=== PATIENT | male | born 1970 | race Caucasian/White ===

== ENCOUNTER 2024-01-05 10:46 | Inpatient (IN) ==
[2024-01-05] MEDS ORDERED: VANCOMYCIN CONSULT ACTIVE PRN (11:38)
--- NOTE | 2024-01-05 11:39 | Emergency Department Note ---
Impression & Plan Laryngitis, Esophagitis, Multiple myeloma, Pharyngitis, Narrowing of airway ED Provider Note NAME: CAT MIX AGE: 53 SEX: M : 1970 ARRIVES VIA: Walk-In INFORMANT: Patient ED PROVIDER(S): Jass Berg MD CHIEF COMPLAINT: Congestion, sore throat, PLAN: Disposition: Admit MEDICAL DECISION MAKING: The patient is a pleasant 53y/o gentleman with a past medical history of multiple myeloma following with [facility], [place], operated by [facility] who presents to the emergency department via walk-in, accompanied by his for concern for worsening congestion and fevers over the past several days. They report that patient had complications from his treatments with fluid retention and so has not had any treatment for his multiple myeloma for the past month. Reports having sore throat and painful swallowing and difficulty clearing congestion in his throat due to the pain when he does. On my evaluation the patient is uncomfortable no distress, afebrile with heart in the 110s and blood pressure 160s/100s and vital signs otherwise stable. He appears clinically dry. There is no stridor but does have upper airway congestion, which is painful for him to mobilize. Patient exhibits substantial posterior pharyngeal injection minimal edema of the visualized posterior pharynx. There is no tongue elevation or trismus. No pain with tracheal manipulation. EKG without overt acute ischemia. CXR negative for acute cardiopulmonary process per my personal preliminary review/interpretation. WBC 12K with neutrophilia but no left shift. H/H 13.8/39.3 without prior for comparison. Platelets 1 18K without prior for comparison. Chemistry without metabolic acidosis. Lactic acid 0.8, within normal limits. Procalcitonin is not elevated. High-sensitivity troponin 8.4, within normal limits. UA without evidence of infection. Respiratory BioFire was negative. Patient was treated with IV fluid hydration, dexamethasone, DuoNeb with improvement in his secretions. He was subsequently given Magic mouthwash and had additional relief of symptoms and able to mobilize secretions. Empiric Zosyn and Vancomycin administered. Given his history and severity of symptoms CT of the neck and chest were obtained. Findings demonstrate edematous glottic folds and epiglottis with adjacent stranding. This results in severe supraglottic and glottic airway narrowing. Angioedema and infectious process are considered. Wall thickening with adjacent stranding of the proximal thoracic esophagus suggestive hidradenitis. Lytic skeletal lesions consistent with the patient's history of multiple myeloma. On reevaluation, the patient continued to exhibit no stridor during his observation. They agree with plan for admission. Vital signs improved. Case was discussed with Dr. Rivera ENT on-call. Appreciate consultation, recommendations, and evaluation at the bedside. Case was discussed with Dr. Lozada [facility] hospitalist, who will evaluate the patient for admission. Further management per admitting team. Triage Nursing notes reviewed and agree them. Prior/external medical records reviewed Vital Signs: reviewed Differential diagnosis: Viral syndrome, otitis, pharyngitis, pneumonia, influenza, meningitis, urinary tract infection, sepsis, bacteremia, as well as other pathologies. ER treatment provided: See below. Diagnostics interpreted by me: ECG: Sinus tachycardia, 108, no ectopy, no overt ST elevation or depression, QTc 455, QRS 102. Cardiac Monitoring: An order for continuous cardiac monitoring was placed and demonstrated Sinus tachycardia, 108, no ectopy. Laboratory studies: See below Imaging studies: See below Consultation(s): Dr. Rivera ENT on-call Dr. Lozada [facility] hospitalist HPI: The patient is a pleasant 53y/o gentleman with a past medical history of multiple myeloma following with [facility], [place], operated by [facility] who presents to the emergency department via walk-in, accompanied by his for concern for worsening congestion and fevers over the past several days. They report that patient had complications from his treatments with fluid retention and so has not had any treatment for his multiple myeloma for the past month. Reports having sore throat and painful swallowing and difficulty clearing congestion in his throat due to the pain when he does. ROS: See above HPI for pertinent positives & negatives. A total of 10 systems reviewed and were otherwise negative. VITALS:See Below PHYSICAL EXAMINATION: GENERAL: Awake, alert, uncomfortable-appearing, in no distress HENT: Normocephalic, atraumatic. Substantial posterior pharyngeal injection minimal edema of the visualized posterior pharynx. There is no tongue elevation or trismus. EYES: Normal conjunctiva. Sclera non-icteric. NECK: Supple. No nuchal rigidity. FROM. No JVD. No stridor but does have upper airway congestion, which is painful for him to mobilize. No pain with tracheal manipulation. RESPIRATORY: Clear to auscultation. CARDIAC: Tachycardic rate, normal rhythm. Extremities warm and well perfused. Pulses equal. ABDOMEN: Soft, non-distended. No tenderness to palpation. No rebound or guarding. No masses. MUSCULOSKELETAL: Chest examination reveals no tenderness. The back is symmetrical on inspection without obvious abnormality. There is no CVA tenderness to palpation. No joint edema. LOWER EXTREMITIES: Calves are equal size bilaterally and non-tender. No edema. No discoloration. NEURO: Normal sensorium. No sensory or motor deficits noted. SKIN: No rash or jaundice noted. Jass Berg MD Past Med/Surg History Problem List (Updated 01/05/24 @ 18:13 by Jass Berg MD) Narrowing of airway (Acute) Pharyngitis (Acute) Laryngitis (Acute) Epiglottitis Hypophosphatemia Sepsis Hypertension Multiple myeloma (Acute) Esophagitis (Acute) Social History Smoking Status: Never smoker Preferred Language: Bengali Feels Safe at Home: Yes Allergies Allergies Allergy/AdvReac Type Severity Reaction Status Date / Time No Known Allergies Allergy Unverified 01/05/24 10:58 Home Meds Home Medications Medication Instructions Recorded Confirmed aspirin 81 mg tablet 81 mg PO DAILY 01/05/24 01/05/24 bupropion HCl 150 mg 24 hr tablet, 150 mg PO QAM 01/05/24 01/05/24 extended release (Wellbutrin XL) cholecalciferol (vitamin D3) 10 10 mcg PO DAILY 01/05/24 01/05/24 mcg (400 unit) capsule cyanocobalamin (vitamin B-12) 1,000 mcg MONTHLY 01/05/24 01/05/24 1,000 mcg/mL injection syringe dexamethasone 4 mg tablet 4 mg PO DAILY 01/05/24 01/05/24 escitalopram oxalate 20 mg tablet 20 mg PO DAILY 01/05/24 01/05/24 furosemide 20 mg tablet 20 mg PO DAILY 01/05/24 01/05/24 gabapentin 300 mg tablet 300 mg PO HS 01/05/24 01/05/24 hyoscyamine sulfate 0.125 mg 0.125 mg PO TID PRN Abdominal 01/05/24 01/05/24 disintegrating tablet (Anaspaz) Discomfort levothyroxine 88 mcg tablet 88 mcg PO DAILY 01/05/24 01/05/24 loratadine 10 mg tablet 10 mg PO DAILY PRN part of chemo 01/05/24 01/05/24 treatment metoprolol succinate 50 mg 25 mg PO DAILY 01/05/24 01/05/24 tablet,extended release 24 hr montelukast 10 mg tablet 10 mg PO DAILY 01/05/24 01/05/24 oxycodone 5 mg tablet 5 mg PO Q6H PRN Pain 01/05/24 01/05/24 rosuvastatin 10 mg tablet 10 mg PO DAILY 01/05/24 01/05/24 zolpidem 5 mg tablet 5 mg PO HS PRN Sleep 01/05/24 01/05/24 Results & Data (ED) Vital Signs Vital Signs - 24 hr 01/05/24 10:58 01/05/24 11:00 01/05/24 11:16 Temperature 37.4 C Temperature Source Oral Pulse Rate 110 H 109 H Pulse Rate [Apical] 115 H Pulse Rhythm Regular Pulse Strength Normal Respiratory Rate 24 24 Respiratory Effort / Characteristics Non-Labored Spontaneous Spontaneous Short of Breath Respiratory Depth Normal Shallow Respiratory Pattern Regular Regular Blood Pressure 160/106 H Blood Pressure [Right Arm] 161/105 H Blood Pressure Mean 124 Blood Pressure Mean [Right Arm] 123 Blood Pressure Position Sitting Pulse Oximetry 96 96 Oxygen Delivery Method Room Air Room Air Sepsis Recent Fever Within 48 Hours Yes Sepsis New/Unexplained Change in Mental Status N/A Sepsis Action Taken by Nursing No Action Required 01/05/24 11:18 01/05/24 12:00 01/05/24 13:00 Temperature Temperature Source Pulse Rate Pulse Rate [Apical] 115 H 102 H Pulse Rhythm Pulse Strength Respiratory Rate 24 22 Respiratory Effort / Characteristics Spontaneous Spontaneous Respiratory Depth Shallow Shallow Respiratory Pattern Regular Regular Blood Pressure Blood Pressure [Right Arm] 162/91 H 145/85 H Blood Pressure Mean Blood Pressure Mean [Right Arm] 114 105 Blood Pressure Position Pulse Oximetry 96 95 95 Oxygen Delivery Method Room Air Room Air Room Air Sepsis Recent Fever Within 48 Hours Sepsis New/Unexplained Change in Mental Status Sepsis Action Taken by Nursing 01/05/24 14:00 01/05/24 15:00 01/05/24 17:00 Temperature Temperature Source Pulse Rate Pulse Rate [Apical] 89 86 83 Pulse Rhythm Pulse Strength Respiratory Rate 20 18 17 Respiratory Effort / Characteristics Non-Labored Spontaneous Spontaneous Respiratory Depth Normal Shallow Respiratory Pattern Regular Regular Blood Pressure Blood Pressure [Right Arm] 133/88 130/84 127/74 Blood Pressure Mean Blood Pressure Mean [Right Arm] 103 99 91 Blood Pressure Position Pulse Oximetry 95 95 96 Oxygen Delivery Method Room Air Room Air Room Air Sepsis Recent Fever Within 48 Hours Sepsis New/Unexplained Change in Mental Status Sepsis Action Taken by Nursing Laboratory Data Attestation: I reviewed the patient's lab results. 01/05/24 11:34 01/05/24 11:34 Lab Results 01/05/24 01/05/24 01/05/24 Range/Units 11:27 11:34 15:27 WBC 12.14 H (4.8-10.8) K/ul RBC 4.40 L (4.70-6.10) M/uL Hgb 13.8 L (14.0-18.0) g/dl Hct 39.3 L (42.0-52.0) % MCV 89.3 (80.0-100.0) fL MCH 31.4 (25.0-34.0) pg MCHC 35.1 (32.0-36.0) g/dL RDW Std Deviation 43.2 (36.4-46.3) fL RDW Coeff of Lisseth 13.2 (11.5-14.5) % Plt Count 118 L (130-400) K/uL MPV 9.9 (9.4-12.4) fL Immature Gran % (Auto) 0.4 % Neut % (Auto) 90.2 % Lymph % (Auto) 1.2 % [place] % (Auto) 8.0 % Eos % (Auto) 0.0 % Baso % (Auto) 0.2 % Neut # (Auto) 10.96 H (1.40-6.50) K/uL Lymph # (Auto) 0.14 L (1.20-3.40) K/uL [place] # (Auto) 0.97 H (0.11-0.59) K/uL Eos # (Auto) 0.00 (0.00-0.50) K/uL Baso # (Auto) 0.02 (0.00-0.20) K/uL Immature Gran # (Auto) 0.05 (0.01-0.20) K/uL Toxic Vacuolation 1+ Dohle Bodies 1+ Polychromasia 1+ Sodium 137 (136-145) mmol/L Potassium 3.5 (3.5-5.1) mmol/L Chloride 104 (98-107) mmol/L Carbon Dioxide 25 (21-32) mmol/L Anion Gap 8 (3-11) BUN 16 (6-23) mg/dl Creatinine 0.90 (0.6-1.4) mg/dl Est Cr Clr Drug Dosing 127.9 ml/min eGFR 100.86 BUN/Creatinine Ratio 17.8 (10-20) Glucose 124 H (70-99(Fasting)) mg/dl Lactate 0.8 (0.4-2.0) mmol/L Calcium 9.4 (8.6-10.3) mg/dl Phosphorus 1.8 L (2.5-4.9) mg/dl Magnesium 1.7 (1.7-2.4) mg/dl Total Bilirubin 1.6 H (0.2-1.0) mg/dl Direct Bilirubin 0.2 (0-0.2) mg/dl AST 18 (13-39) U/L ALT 14 (7-52) U/L Alkaline Phosphatase 46 (34-104) U/L Troponin I High Sens 8.4 (0-20) pg/ml Total Protein 7.2 (6.0-8.3) gm/dl Albumin 4.7 (3.4-5.0) gm/dl Procalcitonin 0.42 (0-0.5) ng/ml Urine Color Yellow Urine Appearance Clear (Clear) Urine pH 5.5 (4.5-7.5) Ur Specific [place] 1.015 (1.000-1.030) Urine Protein Trace H (Negative) Urine Glucose (UA) Negative (Negative) Urine Ketones Negative (Negative) Urine Blood Negative (Negative) Urine Nitrite Negative (Negative) Urine Bilirubin Negative (Negative) Urine Urobilinogen Negative (Negative) Ur Leukocyte Esterase Negative (Negative) Urine WBC (Auto) 0-5 (0-5) /hpf Urine RBC (Auto) 0-2 (0-2) /hpf U Hyaline Cast (Auto) 0-2 (0-2) /lpf U Epithel Cells (Auto) 0-2 (0-2) /hpf Urine Bacteria (Auto) None Seen (None Seen) Adenovirus (PCR) Not Detected (NotDetected) B. pertussis DNA (PCR) Not Detected (NotDetected) B.parapertussis DNA PCR Not Detected (NotDetected) C. pneumoniae DNA (PCR) Not Detected (NotDetected) Coronavirus OC43 (PCR) Not Detected (NotDetected) Coronavirus HKU1 (PCR) Not Detected (NotDetected) Coronavirus 229E (PCR) Not Detected (NotDetected) SARS-CoV-2 (PCR) Not Detected (NotDetected) Coronavirus NL63 (PCR) Not Detected (NotDetected) Human Metapneumovir PCR Not Detected (NotDetected) Influenza Type A (PCR) Not Detected (NotDetected) Influenza Type B (PCR) Not Detected (NotDetected) M. pneumoniae (PCR) Not Detected (NotDetected) Parainfluenza 1 (PCR) Not Detected (NotDetected) Parainfluenza 2 (PCR) Not Detected (NotDetected) Parainfluenza 3 (PCR) Not Detected (NotDetected) Parainfluenza 4 (PCR) Not Detected (NotDetected) RSV (PCR) Not Detected (NotDetected) Entero/Rhino (PCR) Not Detected (NotDetected) Administered Medications Discontinued Medications Al Hydrox/Mg Hydrox/Simethicone (Aluminum/Magnesium Susp 30 Ml Udc) 15 ml PO NOW STA Stop: 01/05/24 13:18 Last Admin: 01/05/24 13:42 Dose: Not Given Documented By: BESSY Albuterol (Albut/Ipratrop 3mg/0.5mg Neb 3 Ml Vial) 3 ml NEB NOW STA; Protocol Stop: 01/05/24 11:37 Last Admin: 01/05/24 11:42 Dose: 3 ml Documented By: BESSY Dexamethasone Sodium Phosphate (DexamethasonePf 10 Mg/Ml Vial) 10 mg IV NOW ONE Stop: 01/05/24 11:37 Last Admin: 01/05/24 11:43 Dose: 10 mg Documented By: BESSY Sodium Chloride (Nss) 1,000 mls @ 999 mls/hr IV .Q1H1M ARIE Stop: 01/05/24 12:30 Last Infusion: 01/05/24 12:45 Dose: Infused Documented By: Admin: 01/05/24 11:44 Dose: 999 mls/hr Documented By: BESSY Piperacillin Sod/Tazobactam Sod (Zosyn) 4.5 gm in 100 mls @ 200 mls/hr IV NOW ONE; Protocol Stop: 01/05/24 12:07 Last Infusion: 01/05/24 12:40 Dose: Infused Documented By: Admin: 01/05/24 12:10 Dose: 200 mls/hr Documented By: BESSY Vancomycin HCl 2,750 mg/ (Sodium Chloride) 555 mls @ 200 mls/hr IV NOW ONE Stop: 01/05/24 14:24 Last Infusion: 01/05/24 15:47 Dose: Infused Documented By: Admin: 01/05/24 13:00 Dose: 200 mls/hr Documented By: BESSY Acetaminophen (Ofirmev) 1,000 mg in 100 mls @ 400 mls/hr IV NOW STA Stop: 01/05/24 12:23 Last Infusion: 01/05/24 12:47 Dose: Infused Documented By: Admin: 01/05/24 12:32 Dose: 400 mls/hr Documented By: BESSY Ioversol (Optiray 320 125ml) 120 ml IV ONCE ONE Stop: 01/05/24 15:37 Last Admin: 01/05/24 15:39 Dose: 120 ml Documented By: DELILAH Ketorolac Tromethamine (Ketorolac Tromethamine 15 Mg/Ml Vial) 15 mg IV NOW STA Stop: 01/05/24 13:19 Last Admin: 01/05/24 13:31 Dose: 15 mg Documented By: BESSY Multi-Ingredient Mouthwash/Gargle (First - Mouthwash Blm 5 Ml Udp) 5 ml PO ONE ONE Stop: 01/05/24 13:24 Last Admin: 01/05/24 13:34 Dose: 5 ml Documented By: BESSY Oxymetazoline HCl (Oxymetazoline 0.05% 30 Ml Btl) 1 sprays NA NOW ONE Stop: 01/05/24 16:45 Last Admin: 01/05/24 17:49 Dose: 1 sprays Documented By: TOYA Imaging Data Radiologist's Impression: Chest X-Ray 01/05/24 11:18 XR chest 1V portable CLINICAL HISTORY: Sepsis. COMPARISON STUDY: No previous studies for comparison. FINDINGS: A right internal jugular [id number] is in place. There is no pneumothorax or pleural effusion. There is no consolidation or evidence for pulmonary edema. There are old right-sided rib fractures. The heart is mildly enlarged. IMPRESSION: No acute cardiopulmonary findings. Mild cardiomegaly. ACT 112: Negative or not required by law. Electronically signed by: Kyle Gutierrez M.D. 01/05/2024 1:23 PM Chest CTA 01/05/24 15:11 CT angio chest PE protocol CT DOSE: 1398.39 mGy.cm HISTORY: 53 years-old Male with sob, fever, multiple myeloma, r/o PE. Acute shortness breath in a patient with history of multiple myeloma TECHNIQUE: Multiple CTA images of the chest were obtained after the intravenous administration of Optiray. Coronal and sagittal MIPS were obtained from the axial data set and were submitted for review. All measurements were obtained according to NASCET criteria. A dose lowering technique was utilized adhering to the principles of ALARA. COMPARISON: CT soft tissue neck of same day FINDINGS: CTA: Heart is upper limits of normal in size. No pericardial effusion. Minimal coronary artery calcifications. Right IJ Oyxafd-y-Ujpv catheter. Unremarkable pulmonary artery. CT CHEST: No dominant thyroid nodule or pathologically enlarged lymph nodes. No pneumothorax, pleural effusion, airspace consolidation or overt pulmonary edema. Mild dependent subsegmental bibasilar atelectasis. Central airways are patent. No acute upper abdominal abnormality identified. Hepatic steatosis. Osteolytic skeletal lesions are noted with pathologic cortical destructions involving several right ribs, notably the lateral and third and sixth and posterior seventh ribs. No acute pathologic compression deformity of the spine. No high- grade central canal stenosis identified. Nonspecific circumferential wall thickening of the upper to mid thoracic esophagus. IMPRESSION: 1. No pulmonary emboli identified. 2. Nonspecific wall thickening of the upper to mid thoracic esophagus could be correlated with endoscopy. 3. Expansile destructive osteolytic skeletal lesions compatible with the patient's known clinical history of multiple myeloma. ACT 112: Negative or not required by law. The above report was generated using voice recognition software. It may contain grammatical, syntax or spelling errors. Electronically signed by: David Humphrey M.D. 01/05/2024 3:57 PM Soft Tissue Neck CT 01/05/24 15:11 CT OF THE NECK WITH IV CONTRAST CLINICAL HISTORY: multiple myeloma, pharyngitis COMPARISON STUDY: No previous studies for comparison. TECHNIQUE: Following IV administration of Optiray, helical axial images of the neck were obtained. Sagittal and coronal reconstructions were viewed. Automated exposure control was utilized for the study. A dose lowering technique was utilized adhering to the principles of ALARA. FINDINGS: Visualized portions of the brain parenchyma are unremarkable. A moderate right mastoid effusion is present. There is no prevertebral edema. Of note, the epiglottis and aryepiglottic folds are edematous. There is adjacent stranding. The findings result in severe supraglottic and glottic airway narrowing. No associated fluid collection is present. There is no cervical lymphadenopathy. The parotid and submandibular glands are normal. Major vasculature of the neck is patent. A right internal jugular Sgfhri-k-Daoq is in place. Multiple lytic skeletal lesions are present. These include an expansile lateral right third rib lesion which is partially imaged. There is moderate circumferential wall thickening with mild stranding of the proximal thoracic esophagus. IMPRESSION: 1. Edematous aryepiglottic folds and epiglottis with adjacent stranding. The findings result in severe supraglottic and glottic airway narrowing. The findings are nonspecific and could reflect angioedema or an infectious process. Close clinical follow-up is recommended. A neoplastic etiology is considered less likely however imaging follow-up to ensure resolution is recommended. Findings discussed with Dr. Berg at time of dictation. 2. Wall thickening with adjacent stranding of the proximal thoracic esophagus. This may reflect esophagitis. 3. Lytic skeletal lesions consistent with the history of multiple myeloma. ACT 112: Negative or not required by law. Electronically signed by: Kyle Gutierrez M.D. 01/05/2024 4:15 PM Discharge Plan Visit Data Chief Complaint: Illness Stated Complaint: POSSIBLE PNEUMONIA, FEVER, CONGESTION, CAN'T TALK ED Provider: Jass Berg Discharge Problem: Laryngitis, Esophagitis, Multiple myeloma, Pharyngitis, Narrowing of airway Forms Stand Alone Forms: My [facility] [email or web address] Prescriptions Prescriptions: No Action rosuvastatin 10 mg Tablet 10 mg PO DAILY metoprolol succinate 50 mg Tablet Extended Release 24 Hr 25 mg PO DAILY levothyroxine 88 mcg Tablet 88 mcg PO DAILY Rx Instructions: on an empty stomach hyoscyamine sulfate [Anaspaz] 0.125 mg Tablet,Disintegrating 0.125 mg PO TID PRN (Reason: Abdominal Discomfort) dexamethasone 4 mg Tablet 4 mg PO DAILY montelukast 10 mg Tablet 10 mg PO DAILY Patient Comments: part of chemo treatment aspirin 81 mg Tablet 81 mg PO DAILY zolpidem 5 mg Tablet 5 mg PO HS PRN (Reason: Sleep) furosemide 20 mg Tablet 20 mg PO DAILY loratadine 10 mg Tablet 10 mg PO DAILY PRN (Reason: part of chemo treatment) Patient Comments: part of chemo treatment oxycodone 5 mg Tablet 5 mg PO Q6H PRN (Reason: Pain) cholecalciferol (vitamin D3) 10 mcg (400 unit) Capsule 10 mcg PO DAILY cyanocobalamin (vitamin B-12) 1,000 mcg/mL Syringe 1,000 mcg MONTHLY escitalopram oxalate 20 mg Tablet 20 mg PO DAILY bupropion HCl [Wellbutrin XL] 150 mg Tablet Extended Release 24 Hr 150 mg PO QAM gabapentin 300 mg Tablet 300 mg PO HS Referrals Referrals: PCP,NO [Physician] - Discharge Problem: Multiple myeloma Qualifiers: Multiple myeloma remission status: unspecified Qualified Code(s): C90.00 - Multiple myeloma not having achieved remission Pharyngitis Qualifiers: Pharyngitis/tonsillitis etiology: unspecified etiology Qualified Code(s): J02.9 - Acute pharyngitis, unspecified
[2024-01-05] MEDS: ALBUT/IPRATROP 3MG/0.5MG NEB 3 ML VIAL NEB STA (11:42)
[2024-01-05] MEDS: dexAMETHasone**PF** 10 MG/ML VIAL IV ONE (11:43)
[2024-01-05] MEDS: SODIUM CHLORIDE 0.9% 1,000 ML IV SCH (11:44)
[2024-01-05 12:10] LABS: Hematocrit (blood only) 39.3 % (42.0-52.0); Hemoglobin 13.8 g/dl (14.0-18.0); Mean Corpuscular Hemoglobin 31.4 pg (25.0-34.0); Mean Corpuscular Hgb Conc 35.1 g/dL (32.0-36.0); Mean Corpuscular Volume 89.3 fL (80.0-100.0); Mean Platelet Volume 9.9 fL (9.4-12.4); Platelet Count 118 K/uL (130-400); RDW Coefficient of Variation 13.2 % (11.5-14.5); RDW Standard Deviation 43.2 fL (36.4-46.3); White Blood Count 12.14 K/ul (4.8-10.8)
[2024-01-05] MEDS: PIPERACILLIN/TAZOBACTAM 4.5 GM/100 ML BAG IV ONE (12:10)
[2024-01-05 12:28] LABS: Albumin Level 4.7 gm/dl (3.4-5.0); BUN Creatinine Ratio 17.8 (10-20); Bilirubin Direct 0.2 mg/dl (0-0.2); Bilirubin,Total 1.6 mg/dl (0.2-1.0); Calcium 9.4 mg/dl (8.6-10.3); Creatinine Clr Calc Pharmacy 127.9 ml/min; Magnesium 1.7 mg/dl (1.7-2.4); Phosphorus 1.8 mg/dl (2.5-4.9); Potassium 3.5 mmol/L (3.5-5.1); Total Protein 7.2 gm/dl (6.0-8.3)
[2024-01-05 12:29] LABS: Basophils # (auto) 0.02 K/uL (0.00-0.20); Basophils % (auto) 0.2 %; Dohle Bodies 1+; Immature Granulocytes # (auto) 0.05 K/uL (0.01-0.20); Immature Granulocytes % (auto) 0.4 %; Lymphocytes # (auto) 0.14 K/uL (1.20-3.40); Lymphocytes % (auto) 1.2 %; Monocytes # (auto) 0.97 K/uL (0.11-0.59); Neutrophils # (auto) 10.96 K/uL (1.40-6.50); Neutrophils % (auto) 90.2 %; Polychromasia 1+; Toxic Vacuolation 1+
[2024-01-05] MEDS: ACETAMINOPHEN 1,000 MG/100 ML VIAL IV STA (12:32)
[2024-01-05 12:34] LABS: Troponin I High Sensitivity 8.4 pg/ml (0-20)
[2024-01-05] MEDS: VANCOMYCIN HCL 2,750 MG in SODIUM CHLORIDE 0.9% 500 ML IV ONE (13:00)
[2024-01-05 13:09] LABS: Adenovirus PCR Not Detected (NotDetected); Bordetella parapertussis PCR Not Detected (NotDetected); Bordetella pertussis PCR Not Detected (NotDetected); Chlamydia pneumoniae PCR Not Detected (NotDetected); Coronavirus 229E PCR Not Detected (NotDetected); Coronavirus CoV-2 (COVID19)PCR Not Detected (NotDetected); Coronavirus HKU1 PCR Not Detected (NotDetected); Coronavirus NL63 PCR Not Detected (NotDetected); Coronavirus OC43PCR Not Detected (NotDetected); Human Metapneumovirus PCR Not Detected (NotDetected); Influenza A PCR Not Detected (NotDetected); Influenza B PCR Not Detected (NotDetected); Mycoplasma pneumoniae PCR Not Detected (NotDetected); Parainfluenza Virus 1 PCR Not Detected (NotDetected); Parainfluenza Virus 2 PCR Not Detected (NotDetected); Parainfluenza Virus 3 PCR Not Detected (NotDetected); Parainfluenza Virus 4 PCR Not Detected (NotDetected); Respiratory Syncytial VirusPCR Not Detected (NotDetected); Rhinovirus/Enterovirus PCR Not Detected (NotDetected)
--- NOTE | 2024-01-05 13:24 | XRay Report ---
XR chest 1V portable CLINICAL HISTORY: Sepsis. COMPARISON STUDY: No previous studies for comparison. FINDINGS: A right internal jugular [id number]-b-Xmrq is in place. There is no pneumothorax or pleural eff usion. There is no consolidation or evidence for pulmonary edema. There are old right-sided rib fract ures. The heart is mildly enlarged. IMPRESSION: No acute cardiopulmonary findings. Mild cardiomegaly. ACT 112: Negative or not required by law. Electronically signed by: Kyle Gutierrez M.D. 01/05/2024 1:23 PM
[2024-01-05] MEDS: KETOROLAC TROMETHAMINE 15 MG/ML VIAL IV STA (13:31)
[2024-01-05] MEDS: FIRST - Mouthwash BLM 5 ML UDP PO ONE (13:34)
[2024-01-05] MEDS: ALUMINUM/MAGNESIUM SUSP 30 ML UDC PO STA (13:42)
[2024-01-05] MEDS: OPTIRAY 320 125ml IV ONE (15:39)
[2024-01-05 15:47] LABS: Appearance Urine Clear (Clear); Bacteria Urine Automated None Seen (None Seen); Bilirubin Urine Negative (Negative); Blood Urine Negative (Negative); Cast Urine Automated 0-2 /lpf (0-2); Color Urine Yellow; Epithelial Cell Urine Auto 0-2 /hpf (0-2); Glucose Urine UA Negative (Negative); Ketones Urine Negative (Negative); Leukocyte Esterase Urine Negative (Negative); Nitrite Urine Negative (Negative); Protein Urine Trace (Negative); RBC Urine Automated 0-2 /hpf (0-2); Specific Gravity Urine 1.015 (1.000-1.030); Urobilinogen Urine Negative (Negative); WBC Urine Automated 0-5 /hpf (0-5); pH Urine 5.5 (4.5-7.5)
--- NOTE | 2024-01-05 15:59 | CT Scan Report ---
CT angio chest PE protocol CT DOSE: 1398.39 mGy.cm HISTORY: 53 years-old Male with sob, fever, multiple myeloma, r/o PE. Acute shortness breath in a p atient with history of multiple myeloma TECHNIQUE: Multiple CTA images of the chest were obtained after the intravenous administration of Opt iray. Coronal and sagittal MIPS were obtained from the axial data set and were submitted for review. All measurements were obtained according to NASCET criteria. A dose lowering technique was utilized adhering to the principles of ALARA. COMPARISON: CT soft tissue neck of same day FINDINGS: CTA: Heart is upper limits of normal in size. No pericardial effusion. Minimal coronary artery calcificati ons. Right IJ Wmarnc-j-Ghvf catheter. Unremarkable pulmonary artery. CT CHEST: No dominant thyroid nodule or pathologically enlarged lymph nodes. No pneumothorax, pleural effusion, airspace consolidation or overt pulmonary edema. Mild dependent subsegmental bibasilar atelectasis. Central airways are patent. No acute upper abdominal abnormality identified. Hepatic steatosis. Osteolytic skeletal lesions are n oted with pathologic cortical destructions involving several right ribs, notably the lateral and thir d and sixth and posterior seventh ribs. No acute pathologic compression deformity of the spine. No hi gh-grade central canal stenosis identified. Nonspecific circumferential wall thickening of the upper to mid thoracic esophagus. IMPRESSION: 1. No pulmonary emboli identified. 2. Nonspecific wall thickening of the upper to mid thoracic esophagus could be correlated with endosc opy. 3. Expansile destructive osteolytic skeletal lesions compatible with the patient's known clinical his tory of multiple myeloma. ACT 112: Negative or not required by law. The above report was generated using voice recognition software. It may contain grammatical, syntax o r spelling errors. Electronically signed by: David Humphrey M.D. 01/05/2024 3:57 PM
--- NOTE | 2024-01-05 16:17 | CT Scan Report ---
CT OF THE NECK WITH IV CONTRAST CLINICAL HISTORY: multiple myeloma, pharyngitis COMPARISON STUDY: No previous studies for comparison. TECHNIQUE: Following IV administration of Optiray, helical axial images of the neck were obtained. Sagittal and coronal reconstructions were viewed. Automated exposure control was utilized for the st udy. A dose lowering technique was utilized adhering to the principles of ALARA. FINDINGS: Visualized portions of the brain parenchyma are unremarkable. A moderate right mastoid eff usion is present. There is no prevertebral edema. Of note, the epiglottis and aryepiglottic folds are edematous. There is adjacent stranding. The findings result in severe supraglottic and glottic airwa y narrowing. No associated fluid collection is present. There is no cervical lymphadenopathy. The par otid and submandibular glands are normal. Major vasculature of the neck is patent. A right internal j ugular [id number] is in place. Multiple lytic skeletal lesions are present. These include an expan sile lateral right third rib lesion which is partially imaged. There is moderate circumferential wall thickening with mild stranding of the proximal thoracic esophagus. IMPRESSION: 1. Edematous aryepiglottic folds and epiglottis with adjacent stranding. The findings result in sever e supraglottic and glottic airway narrowing. The findings are nonspecific and could reflect angioedem a or an infectious process. Close clinical follow-up is recommended. A neoplastic etiology is conside red less likely however imaging follow-up to ensure resolution is recommended. Findings discussed wit jonathan Berg at time of dictation. 2. Wall thickening with adjacent stranding of the proximal thoracic esophagus. This may reflect esoph agitis. 3. Lytic skeletal lesions consistent with the history of multiple myeloma. ACT 112: Negative or not required by law. Electronically signed by: Kyle Gutierrez M.D. 01/05/2024 4:15 PM
--- NOTE | 2024-01-05 16:42 | History & Physical Report ---
Date of Service January 05, 2024 Assessment & Plan (1) Epiglottitis: Plan: patient presents with pharyngitis, mild URI symptoms, leukocytosis Severe airway narrowing Soft tissue neck CT showing: - severe supraglottic and glottic airway narrowing, nonspecific and could reflect angioedema versus infectious process versus neoplastic etiology imaging follow-up recommended - wall thickening and stranding of thoracic esophagus reflects esophagitis ED course: Decadron, Duoneb, Zosyn, Vanc, Cetacine, Tylenol, Maalox, Toradol, Afrin, Magic mouthwash, NSS bolus - ENT consulted -> taken emergently to OR for tracheostomy with biopsies to be taken - will switch antibiotic coverage to Unasyn as per ENT recommendations - continue dexamethasone 6mg IV daily - CMV titer ordered - if clinically worsening can consider addition of valacyclovir given immunocompromised - admit to ICU post-operatively (2) Multiple myeloma: Plan: currently undergoing treatment with [facility]; no treatment with chemo for the past month because of complications with fluid retention - osteolytic skeletal lesions seen chest CTA and soft tissue neck CT - on dexamethasone, montelukast, loratadine at home - holding all PO medications at this time (3) Hypertension: Plan: stable - hold home BP medications at this time given no PO intake - can add IV control if needed in future (4) Hypophosphatemia: Plan: 1.8 on admission along with hypomagnesemia (3.5) - will give IV K-phos 6 mmol on admission - trend Phos and BMP with AM labs Plan Chronic stable diagnoses: HLD - hold ASA and statin Hypothyroidism - hold levothyroxine A/D - hold Wellbutrin, escitalopram, zolpidem *all PO medications held given esophagitis - can consider IV medications if needed overnight VTE ppx: SCDs; defer pharmacologic management at this time Diet: NPO Dispo: ICU given airway compromise Admission and Anticipated Discharge Date Admission Date: 01/05/24 History of Present Illness Chief Complaint: illness Primary Care Provider: Valeria Zen Patient is a 53-year-old male with past medical history of multiple myeloma currently undergoing treatment, hyperlipidemia, anxiety/depression, hypertension, hypothyroidism. Presents today due to URI symptoms, sore throat congestion, difficulty breathing. He went to his family doctor today and they sent him to the ER. On exam the ENT was present, discussing that patient needs go for trach immediately. Patient was feeling anxious, questions answered. Patient's updated at bedside. She stated he has not been having treatment for multiple myeloma for the past month due to fluid overload, started on Lasix. No other medication changes. Allergies Allergy/AdvReac Type Severity Reaction Status Date / Time No Known Allergies Allergy Unverified 01/05/24 10:58 Home Medications Medication Instructions Recorded Confirmed Type aspirin 81 mg tablet 81 mg PO DAILY 01/05/24 01/05/24 History bupropion HCl 150 mg 24 hr tablet, 150 mg PO QAM 01/05/24 01/05/24 History extended release (Wellbutrin XL) cholecalciferol (vitamin D3) 10 10 mcg PO DAILY 01/05/24 01/05/24 History mcg (400 unit) capsule cyanocobalamin (vitamin B-12) 1,000 mcg MONTHLY 01/05/24 01/05/24 History 1,000 mcg/mL injection syringe dexamethasone 4 mg tablet 4 mg PO DAILY 01/05/24 01/05/24 History escitalopram oxalate 20 mg tablet 20 mg PO DAILY 01/05/24 01/05/24 History furosemide 20 mg tablet 20 mg PO DAILY 01/05/24 01/05/24 History gabapentin 300 mg tablet 300 mg PO HS 01/05/24 01/05/24 History hyoscyamine sulfate 0.125 mg 0.125 mg PO TID PRN Abdominal 01/05/24 01/05/24 History disintegrating tablet (Anaspaz) Discomfort levothyroxine 88 mcg tablet 88 mcg PO DAILY 01/05/24 01/05/24 History loratadine 10 mg tablet 10 mg PO DAILY PRN part of chemo 01/05/24 01/05/24 History treatment metoprolol succinate 50 mg 25 mg PO DAILY 01/05/24 01/05/24 History tablet,extended release 24 hr montelukast 10 mg tablet 10 mg PO DAILY 01/05/24 01/05/24 History oxycodone 5 mg tablet 5 mg PO Q6H PRN Pain 01/05/24 01/05/24 History rosuvastatin 10 mg tablet 10 mg PO DAILY 01/05/24 01/05/24 History zolpidem 5 mg tablet 5 mg PO HS PRN Sleep 01/05/24 01/05/24 History Past Med/Surg History Problem List Narrowing of airway (Acute) Pharyngitis (Acute) Laryngitis (Acute) Epiglottitis Hypophosphatemia Sepsis Hypertension Multiple myeloma (Acute) Esophagitis (Acute) Social History Smoking Status: Never smoker Preferred Language: [place] Feels Safe at Home: Yes Review of Systems Review of Systems: see HPI Physical Exam Physical Exam: The patient is awake, in respiratory distress, being taken for emergent trach. HEENT- EOMI, mucous membranes dry. Hearing grossly intact. Heart-normal S1 and S2. No murmurs, rubs or gallops. Lungs-decreased bilaterally, no respiratory distress, no accessory muscle use. Abdomen-normal bowel sounds and soft. No ascites noted. Non-tender. Extremities- no clubbing, cyanosis, or edema. Rheumatologic-normal range of motion. Psychiatric- anxious affect. Results & Data Results & Data Vital Signs (Past 12 Hours) Vital Signs Temp Pulse Pulse Resp BP BP Pulse Ox 01/05/24 15:00 86 18 130/84 95 01/05/24 14:00 89 20 133/88 95 01/05/24 13:00 102 H 22 145/85 H 95 01/05/24 12:00 115 H 24 162/91 H 95 01/05/24 11:18 96 01/05/24 11:16 109 H 01/05/24 11:00 115 H 24 161/105 H 96 01/05/24 10:58 37.4 C 110 H 24 160/106 H 96 O2 Del Method 01/05/24 15:00 Room Air 01/05/24 14:00 Room Air 01/05/24 13:00 Room Air 01/05/24 12:00 Room Air 01/05/24 11:18 Room Air 01/05/24 11:16 01/05/24 11:00 Room Air 01/05/24 10:58 Room Air Code Status & VTE Plan VTE Prophylaxis Plan VTE Prophylaxis will be ordered: Yes Supervising Physician Co-Signing Physician Notes Patient seen and examined, chart reviewed, case discussed with aMrtha Rodriguez PA-C and I agree with the assessment and plan as above except as otherwise noted Labs and images reviewed 53-year-old male who presents with upper respiratory symptoms and pharyngitis and painful swallowing. No wheezing no stridor. CTsoft tissue of the neck shows wall thickening and adjacent stranding of the proximal thoracic esophagus suspicious for esophagitis, edematous epiglottic folds and adjacent stranding resulting in glottic airway narrowing suspicious for infectious process versus angioedema. Patient presents with pharyngitis, mild leukocytosis without left shift and URI symptoms concerning for infectious epiglottitis. Due to with severe narrowing ENT consulted while patient was in ER and will evaluate at the bedside. Patient is with risk of immunosuppression with underlying multiple myeloma not currently on chemotherapy in the last few weeks. Empirically covered with Zosyn/vancomycin in the ER. No purulent material/abscesses appreciated. Transitioned to Unasyn postprocedure Seen at bedside prior to taken urgently to the OR for tracheostomy to secure airway. Patient endorses full days of sore throat and difficulty swallowing. Does have history of multiple myeloma. Does feel slightly improved after receiving steroids on reassessment but still has difficulty swallowing and clearing secretions. No stridor but did endorse difficulty breathing on arrival to the ER. Patient was seen at bedside with ENT performed a nasopharyngoscopy. Subsequent tracheostomy was recommended, patient consented by ENT and taken emergently to the OR. Patient will be admitted to the ICU postprocedure. EBV, CMV serologies have been sent Surgical biopsies for pathology and cultures are pending Unasyn continued PG Care Time/CCT Total # of Minutes Spent Total Time Spent with Patient: Total time spent is greater than 50% in coordination of care (as documented) at patient's floor/unit and/or counseling patient: Coding Level of Care Code 36029 INT INP/OBS CARE 3/75MIN Diagnoses Epiglottitis J05.10 Multiple myeloma C90.00 Hypertension I10 Hypophosphatemia E83.39
[2024-01-05] MEDS ORDERED: POTASSIUM PHOS 3 MMOL/1 ML INFUSION IV STA (17:36)
[2024-01-05] MEDS: OXYMETAZOLINE 0.05% 30 ML BTL ONE (17:49)
[2024-01-05] MEDS ORDERED: KETAMINE HCL 10MG/ML SYR ONE (18:13)
[2024-01-05] MEDS ORDERED: PROPOFOL IV EMULSION 10 MG/ML 20 ML VIAL IV ONE ×2 (18:13→19:44)
[2024-01-05] MEDS ORDERED: MIDAZOLAM HCL 1 MG/ML 2ML VIAL ONE ×3 (18:13→19:24)
--- NOTE | 2024-01-05 18:34 | ENT Consultation ---
Date of Consultation January 05, 2024 Assessment & Plan (1) Narrowing of airway: Impression: Patient does have a supraglottic swelling likely arising from the aryepiglottic folds extending to the posterior arytenoid area. Plan: While the patient has improved a little I think we should secure the airway and do a laryngoscopy and biopsy as well as take cultures. History of Present Illness History of Present Illness Patient is a 53 year old male with a 2 day history of a sore throat and difficulty swallowing. Patient presents with difficulty breathing. He has a history of Multiple myeloma and is not undergoing treatment at the present time. Patient has received IV antibiotics and steroids and he feels somewhat better. His breathing is improved and he can talk a bit now. He has difficulty swallowing his secretions so spits into a cup. He has no prior history of the same. CT scan shows a supraglottic swelling obstructing his glottis. Below the glottis the airway is good and above the epiglottis the airway is good the epiglottis looks okay as well. The swelling then appears to arise in the supraglottic area below the epiglottis and posteriorly Allergies Allergy/AdvReac Type Severity Reaction Status Date / Time No Known Allergies Allergy Unverified 01/05/24 10:58 Home Medications Medication Instructions Recorded Confirmed Type aspirin 81 mg tablet 81 mg PO DAILY 01/05/24 01/05/24 History bupropion HCl 150 mg 24 hr tablet, 150 mg PO QAM 01/05/24 01/05/24 History extended release (Wellbutrin XL) cholecalciferol (vitamin D3) 10 10 mcg PO DAILY 01/05/24 01/05/24 History mcg (400 unit) capsule cyanocobalamin (vitamin B-12) 1,000 mcg MONTHLY 01/05/24 01/05/24 History 1,000 mcg/mL injection syringe dexamethasone 4 mg tablet 4 mg PO DAILY 01/05/24 01/05/24 History escitalopram oxalate 20 mg tablet 20 mg PO DAILY 01/05/24 01/05/24 History furosemide 20 mg tablet 20 mg PO DAILY 01/05/24 01/05/24 History gabapentin 300 mg tablet 300 mg PO HS 01/05/24 01/05/24 History hyoscyamine sulfate 0.125 mg 0.125 mg PO TID PRN Abdominal 01/05/24 01/05/24 History disintegrating tablet (Anaspaz) Discomfort levothyroxine 88 mcg tablet 88 mcg PO DAILY 01/05/24 01/05/24 History loratadine 10 mg tablet 10 mg PO DAILY PRN part of chemo 01/05/24 01/05/24 History treatment metoprolol succinate 50 mg 25 mg PO DAILY 01/05/24 01/05/24 History tablet,extended release 24 hr montelukast 10 mg tablet 10 mg PO DAILY 01/05/24 01/05/24 History oxycodone 5 mg tablet 5 mg PO Q6H PRN Pain 01/05/24 01/05/24 History rosuvastatin 10 mg tablet 10 mg PO DAILY 01/05/24 01/05/24 History zolpidem 5 mg tablet 5 mg PO HS PRN Sleep 01/05/24 01/05/24 History Patient History Social History Smoking Status: Never smoker Preferred Language: Bangl[place]hi Feels Safe at Home: Yes Physical Exam Physical Exam: On examination the septum is deviated to the left side. I inserted a flexible fiberoptic scope and there was swelling and some erythema below the epiglottis obstructing the view of the airway totally Results & Data Vital Signs (Past 12 Hours) Vital Signs Temp Pulse Pulse Resp BP BP Pulse Ox 01/05/24 18:00 85 18 126/94 95 01/05/24 17:00 83 17 127/74 96 01/05/24 15:00 86 18 130/84 95 01/05/24 14:00 89 20 133/88 95 01/05/24 13:00 102 H 22 145/85 H 95 01/05/24 12:00 115 H 24 162/91 H 95 01/05/24 11:18 96 01/05/24 11:16 109 H 01/05/24 11:00 115 H 24 161/105 H 96 01/05/24 10:58 37.4 C 110 H 24 160/106 H 96 O2 Del Method 01/05/24 18:00 Room Air 01/05/24 17:00 Room Air 01/05/24 15:00 Room Air 01/05/24 14:00 Room Air 01/05/24 13:00 Room Air 01/05/24 12:00 Room Air 01/05/24 11:18 Room Air 01/05/24 11:16 01/05/24 11:00 Room Air 01/05/24 10:58 Room Air PG Care Time/CCT Total # of Minutes Spent Total Time Spent with Patient: Total time spent is greater than 50% in coordination of care (as documented) at patient's floor/unit and/or counseling patient: [place] [address] ER DEPT VISIT HIGH LVL 5 Patient Type New History Expanded Problem Focused Exam Expanded Problem Focused Medical Decision Making High Complexity Diagnoses Narrowing of airway J98.8 CPT Codes Nasopharyngoscopy - 70558 ([id number])
[2024-01-05] MEDS ORDERED: DexMEDEtomidine HCL IV 100 MCG/ML VIAL IV ONE (18:40)
[2024-01-05] MEDS ORDERED: fentaNYL citrate PF 100 MCG/2 ML VIAL IV PRN (18:50)
[2024-01-05] MEDS ORDERED: ATROPINE SULFATE 0.1 MG/ML 10ML SYR IV PRN (18:50)
[2024-01-05] MEDS ORDERED: ePHEDrine sulfate 50 MG/ML AMP IV PRN (18:50)
--- NOTE | 2024-01-05 18:50 | Anesthesiology Consultation ---
Date of Service January 05, 2024 Assessment & Plan ASA ASA4E Proposed Anesthesia Anesthesia Type: MAC Risk / Benefits Reviewed With: PT / POA / Parent / Guardian, Accepts Plan and Informed Consent Obtained Additional Comments: plan d/w insulator tester and dr granados. History Surgery Operation Date: 01/05/24 18:30 Proposed Procedures p Tracheostomy - Robbi Rivera MD Height/Weight Height: 6 ft 3 in Weight: 117 kg Allergies Allergy/AdvReac Type Severity Reaction Status Date / Time No Known Allergies Allergy Unverified 01/05/24 10:58 Medications Home Medications Medication Instructions Recorded Confirmed Last Taken aspirin 81 mg tablet 81 mg PO DAILY 01/05/24 01/05/24 01/04/24 08:00 bupropion HCl 150 mg 24 hr tablet, 150 mg PO QAM 01/05/24 01/05/24 01/04/24 08:00 extended release (Wellbutrin XL) cholecalciferol (vitamin D3) 10 10 mcg PO DAILY 01/05/24 01/05/24 01/04/24 08:00 mcg (400 unit) capsule cyanocobalamin (vitamin B-12) 1,000 mcg MONTHLY 01/05/24 01/05/24 12/02/23 08:00 1,000 mcg/mL injection syringe dexamethasone 4 mg tablet 4 mg PO DAILY 01/05/24 01/05/24 01/04/24 08:00 escitalopram oxalate 20 mg tablet 20 mg PO DAILY 01/05/24 01/05/24 01/04/24 08:00 furosemide 20 mg tablet 20 mg PO DAILY 01/05/24 01/05/24 01/04/24 08:00 gabapentin 300 mg tablet 300 mg PO HS 01/05/24 01/05/24 01/04/24 22:00 hyoscyamine sulfate 0.125 mg 0.125 mg PO TID PRN Abdominal 01/05/24 01/05/24 Unknown disintegrating tablet (Anaspaz) Discomfort levothyroxine 88 mcg tablet 88 mcg PO DAILY 01/05/24 01/05/24 01/04/24 08:00 loratadine 10 mg tablet 10 mg PO DAILY PRN part of chemo 01/05/24 01/05/24 Unknown treatment metoprolol succinate 50 mg 25 mg PO DAILY 01/05/24 01/05/24 01/04/24 08:00 tablet,extended release 24 hr montelukast 10 mg tablet 10 mg PO DAILY 01/05/24 01/05/24 Unknown oxycodone 5 mg tablet 5 mg PO Q6H PRN Pain 01/05/24 01/05/24 Unknown rosuvastatin 10 mg tablet 10 mg PO DAILY 01/05/24 01/05/24 01/04/24 08:00 zolpidem 5 mg tablet 5 mg PO HS PRN Sleep 01/05/24 01/05/24 Unknown NPO Date Last Intake of Fluids: 01/04/24 Date Last Intake of Solids: 01/04/24 Exercise / Class Metabolic Activity II 4-5 Yardwork/Stairs/Walk up hill Past Anesthesia History No Hx of Anesthesia Complications and No Family Hx of Anesthesia Complications History of PONV No Hx of PONV and No Hx of Motion Sickness Social History Smoking Status: Never smoker Review of Systems denies fever/cough/ colds/ chest pain/ SOB/ SILVIANO denies SILVIANO Physical Exam Vital Signs Last Vital Signs Temp 36.6 C 01/05/24 18:36 Pulse 83 01/05/24 18:36 Resp 20 01/05/24 18:36 BP 147/101 H 01/05/24 18:36 Pulse Ox 99 01/05/24 18:36 O2 Del Method Room Air 01/05/24 18:36 Constitutional no acute distress ENMT Mouth: no TMJ abnormality and no dentition abnormality Thyromental Distance: > or= 3.5 Finger Breadths Mallampati Class: IV Neck + thick neck and + facial hair; neck extension not limited Respiratory normal respiratory effort; no respiratory distress Auscultation: lungs clear to auscultation bilaterally Cardiovascular Rate/Rhythm: regular rate and regular rhythm Neurologic moves all extremities Psychiatric Orientation: alert and oriented x 3 Testing Laboratory Results 01/05/24 11:34 01/05/24 11:34 Urine Color Yellow 01/05/24 15:27 Urine Appearance Clear (Clear) 01/05/24 15: Urine pH 5.5 (4.5-7.5) 01/05/24 15: Ur Specific [place] 1.015 (1.000-1.030) 01/05/24 15: Urine Protein Trace (Negative) H 01/05/24 15: Urine Glucose (UA) Negative (Negative) 01/05/24 15:27 Urine Ketones Negative (Negative) 01/05/24 15:27 Urine Nitrite Negative (Negative) 01/05/24 15:27 Ur Leukocyte Esterase Negative (Negative) 01/05/24 15:27 Urine WBC (Auto) 0-5 /hpf (0-5) 01/05/24 15:27 Urine RBC (Auto) 0-2 /hpf (0-2) 01/05/24 15:27 U Hyaline Cast (Auto) 0-2 /lpf (0-2) 01/05/24 15:27 U Epithel Cells (Auto) 0-2 /hpf (0-2) 01/05/24 15:27 Urine Bacteria (Auto) None Seen (None Seen) 01/05/24 15:27
[2024-01-05] MEDS ORDERED: fentaNYL citrate PF 100 MCG/2 ML VIAL ONE (19:35)
[2024-01-05] MEDS ORDERED: ROCURONIUM BROMIDE 10 MG/ML 5 ML VIAL IV ONE (19:44)
[2024-01-05] MEDS: LIDOCAINE 1%/EPINEPHRINE 1:100,000 50 ML VIAL ONE (19:44)
--- NOTE | 2024-01-05 20:07 | Critical Care Consultation ---
Date of Consultation January 05, 2024 Assessment & Plan (1) Narrowing of airway: (2) Epiglottitis: (3) Hypophosphatemia: (4) Sepsis: Plan Reason Critically Ill: 53 YOM presents to the ER for difficulty swallowing and sore throat, found to have airway narrowing requiring urgent tracheostomy placement. To the ICU post procedure on mechanical ventilation. Neuro - Sedation for mechanical ventilation, hx of anxiety/depression, pain from lytic bone lesions CAM ICU: GAMA - ADRIEL goal -2- sedation with propofol and Fentanyl overnight- sedation holiday in morning - Hold home anxiety/depression agents at this time - For his lytic bone pain- he takes Zometa at home and oxycodone- may need DHT until trach downsized or able to take cuff down- or continue with IV pain control - currently receiving fentanyl as above Cardiac - Sepsis HX HTN - Technically met SIRS criteria in the ER with suspected source as throat- without organ dysfunction or elevation of lactate, MAPS >65 - Hypotension at this time likely related to sedation however support MAPS- Levophed - Follow hemodyanmics/perfusion with UO, POCUS if needed, lactate 0.8 - Hold antihypertensives until hemodynamics proven stable and renal function evaluated. Respiratory - Acute respiratory failure requiring urgent tracheostomy, on mechanical ventilation - #[address]- CXR without pneumothorax and tracheostomy appears in good position - ARDSnet ventilatory strategy- 6ml/kg, wean FIO2 - Spont trial in the am with hopeful liberation and transition to trach collar - Pending clinical course and vent status determine time frame to downsize trach as well GI - No acute needs RENAL/LYTES - Electrolyte disturbances - Replete per ICU protocol- likely secondary to decreased oral intake with difficulty swallowing - Chaves to gravity, leave in place while sedated and on ventilator ENDO - No acute needs- hx of hypothyroidism - Continue Synthroid when able- if going to be delayed from oral intake - consider changing to IV 30-50% of oral dose HEME - Multiple Myeloma - Gets care at [facility]- Daratumumab and - Epiglottis - it is possible that this may be secondary to MML - await biopsy results ID - Epiglottis - With prodrome of symptoms prior - will cover with Unasyn at this time - D/C Vancomycin - CMV, EBV, Culture and Gram Stain, and cytology/path pending - Change steroid to methylpred- 60mg IV daily 2-3 days - PCT negative LINES/IV ACCESS - PIV, Chaves, Tracheostomy Continue use of these lines DVT PROPHYLAXIS - SCDS, Lovenox 40mg Sub q DISPO: ICU with fresh tracheostomy and while sedated and on mechanical ventilation I have personally spent 55 minutes of critical care time in the direct management of this patient. This is a life/limb threatening event. This includes time spent evaluating patient, direct bedside care, chart review, placing orders, interpretation of diagnostic studies, discussion with consultants, patient, and family members, as well as other required patient management activities. This time is exclusive of all separately billable procedures, and separate from and in addition to any other critical care service time. Thank you for allowing us to participate in the care of this patient. Please refer to my attending physician's documentation for any further recommendations. History of Present Illness Reason for Consultation: Glotitis requiring emergent tracheostomy Requesting Physician: Chapo Lozada MD Attending Physician: Robbi Rivera MD History of Present Illness 53 YOM with history of: Multiple myeloma - [facility] currently undergoing treatment, HTN, Hypothyroidism, Anxiety, Depression. Patient came to the ER today for complaints of difficulty swallowing, sore throat, and URI/Pharyngitis symptoms for the past few days. In the ER he was given Decadron, Zosyn, Vancomycin, and albuterol nebulization with some improvement of his symptoms by report. CT scan of the chest and neck were obtained. CT of the neck were interpreted as severe supraglottic and glottic airway narrowing as well as right mastoid effusion, the surrounding vasculature was also noted as patent. ENT was notified and evaluated the patient in the ER with fiberoptic scope and noted supraglottic swelling arising from the aryepiglottic folds and extending to the posterior arytenoid area and felt securing his airway at this time was appropriate, he was taken to the Operating Room and underwent urgent tracheostomy. Cultures and b iopsies were taken per OR report and discussion with ENT. He arrives to the ICU paralyzed and sedated, he was transitioned over to ventilator without events as well as sedated on Propofol and Fentanyl. He will remain sedated overnight while on the Ventilator with likely ability to liberate in the morning. #6.0 Cuffed Shiley was placed in the OR- Will have 6.0 and 5.0 at the bedside CODE: FULL Allergies Allergy/AdvReac Type Severity Reaction Status Date / Time No Known Allergies Allergy Unverified 01/05/24 10:58 Home Medications Medication Instructions Recorded Confirmed Type aspirin 81 mg tablet 81 mg PO DAILY 01/05/24 01/05/24 History bupropion HCl 150 mg 24 hr tablet, 150 mg PO QAM 01/05/24 01/05/24 History extended release (Wellbutrin XL) cholecalciferol (vitamin D3) 10 10 mcg PO DAILY 01/05/24 01/05/24 History mcg (400 unit) capsule cyanocobalamin (vitamin B-12) 1,000 mcg MONTHLY 01/05/24 01/05/24 History 1,000 mcg/mL injection syringe dexamethasone 4 mg tablet 4 mg PO DAILY 01/05/24 01/05/24 History escitalopram oxalate 20 mg tablet 20 mg PO DAILY 01/05/24 01/05/24 History furosemide 20 mg tablet 20 mg PO DAILY 01/05/24 01/05/24 History gabapentin 300 mg tablet 300 mg PO HS 01/05/24 01/05/24 History hyoscyamine sulfate 0.125 mg 0.125 mg PO TID PRN Abdominal 01/05/24 01/05/24 History disintegrating tablet (Anaspaz) Discomfort levothyroxine 88 mcg tablet 88 mcg PO DAILY 01/05/24 01/05/24 History loratadine 10 mg tablet 10 mg PO DAILY PRN part of chemo 01/05/24 01/05/24 History treatment metoprolol succinate 50 mg 25 mg PO DAILY 01/05/24 01/05/24 History tablet,extended release 24 hr montelukast 10 mg tablet 10 mg PO DAILY 01/05/24 01/05/24 History oxycodone 5 mg tablet 5 mg PO Q6H PRN Pain 01/05/24 01/05/24 History rosuvastatin 10 mg tablet 10 mg PO DAILY 01/05/24 01/05/24 History zolpidem 5 mg tablet 5 mg PO HS PRN Sleep 01/05/24 01/05/24 History Patient History Medical History (Updated 01/05/24 @ 20:40 by GUILHERME Mendez) Depression Anxiety Hypertension Multiple myeloma Social History Smoking Status: Never smoker Hx Alcohol Use: Yes Alcohol type: beer Hx Substance Use: No Preferred Language: Estonian Communication Ability: Effective Wicker Molded Candles Required: No Beliefs That Will Affect Care: None Current Living Situation: Spouse and Family Current Living Situation Comment: and two kids Feels Safe at Home: Yes Assistive Devices: Glasses Review of Systems Review of Systems: unable to obtain secondary to sedation and mechanical ventilation Physical Exam Physical Exam: PHYSICAL EXAM: General: Sedated on mechanical ventilation ENT: PERRL, #[address], sutured Neuro: Sedated, strength intact bilaterally 5/5, sensation intact and equal all extremities and dermatomes, no pronator drift Chest: equal rise and fall of the chest, no accessory muscle use, decreased in the bases, on room air, Cardiac: Regular rate and rhythm, telemetry reviewed, skin warm dry, cap refill <3 seconds, peripheral pulses +2 no JVD, no murmur, no edema GI: NABS x 4 quadrants, soft, nontender to palpation, no rebound, guarding or tenderness : Chaves placed to gravity Skin: no rash or erythema Results & Data Results & Data Vital Signs (Past 12 Hours) Vital Signs Temp Pulse Pulse Resp BP BP Pulse Ox 01/05/24 18:36 36.6 C 83 20 147/101 H 99 01/05/24 18:00 85 18 126/94 95 01/05/24 17:00 83 17 127/74 96 01/05/24 15:00 86 18 130/84 95 01/05/24 14:00 89 20 133/88 95 01/05/24 13:00 102 H 22 145/85 H 95 01/05/24 12:00 115 H 24 162/91 H 95 01/05/24 11:18 96 01/05/24 11:16 109 H 01/05/24 11:00 115 H 24 161/105 H 96 01/05/24 10:58 37.4 C 110 H 24 160/106 H 96 O2 Del Method 01/05/24 18:36 Room Air 01/05/24 18:00 Room Air 01/05/24 17:00 Room Air 01/05/24 15:00 Room Air 01/05/24 14:00 Room Air 01/05/24 13:00 Room Air 01/05/24 12:00 Room Air 01/05/24 11:18 Room Air 01/05/24 11:16 01/05/24 11:00 Room Air 01/05/24 10:58 Room Air Laboratory Results Abnormal lab results 01/05/24 01/05/24 Range/Units 11:34 15:27 WBC 12.14 H (4.8-10.8) K/ul RBC 4.40 L (4.70-6.10) M/uL Hgb 13.8 L (14.0-18.0) g/dl Hct 39.3 L (42.0-52.0) % Plt Count 118 L (130-400) K/uL Neut # (Auto) 10.96 H (1.40-6.50) K/uL Lymph # (Auto) 0.14 L (1.20-3.40) K/uL Bladen # (Auto) 0.97 H (0.11-0.59) K/uL Glucose 124 H (70-99(Fasting)) mg/dl Phosphorus 1.8 L (2.5-4.9) mg/dl Total Bilirubin 1.6 H (0.2-1.0) mg/dl Urine Protein Trace H (Negative) Diagnostic Findings Chest X-Ray 01/05/24 11:18 XR chest 1V portable CLINICAL HISTORY: Sepsis. COMPARISON STUDY: No previous studies for comparison. FINDINGS: A right internal jugular Agyxkz-o-Kbiw is in place. There is no pneumothorax or pleural effusion. There is no consolidation or evidence for pulmonary edema. There are old right-sided rib fractures. The heart is mildly enlarged. IMPRESSION: No acute cardiopulmonary findings. Mild cardiomegaly. ACT 112: Negative or not required by law. Electronically signed by: Kyle Gutierrez M.D. 01/05/2024 1:23 PM Chest CTA 01/05/24 15:11 CT angio chest PE protocol CT DOSE: 1398.39 mGy.cm HISTORY: 53 years-old Male with sob, fever, multiple myeloma, r/o PE. Acute shortness breath in a patient with history of multiple myeloma TECHNIQUE: Multiple CTA images of the chest were obtained after the intravenous administration of Optiray. Coronal and sagittal MIPS were obtained from the axial data set and were submitted for review. All measurements were obtained according to NASCET criteria. A dose lowering technique was utilized adhering to the principles of ALARA. COMPARISON: CT soft tissue neck of same day FINDINGS: CTA: Heart is upper limits of normal in size. No pericardial effusion. Minimal coronary artery calcifications. Right IJ Ybrufb-x-Ivql catheter. Unremarkable pulmonary artery. CT CHEST: No dominant thyroid nodule or pathologically enlarged lymph nodes. No pneumothorax, pleural effusion, airspace consolidation or overt pulmonary edema. Mild dependent subsegmental bibasilar atelectasis. Central airways are patent. No acute upper abdominal abnormality identified. Hepatic steatosis. Osteolytic skeletal lesions are noted with pathologic cortical destructions involving several right ribs, notably the lateral and third and sixth and posterior seventh ribs. No acute pathologic compression deformity of the spine. No high- grade central canal stenosis identified. Nonspecific circumferential wall thickening of the upper to mid thoracic esophagus. IMPRESSION: 1. No pulmonary emboli identified. 2. Nonspecific wall thickening of the upper to mid thoracic esophagus could be correlated with endoscopy. 3. Expansile destructive osteolytic skeletal lesions compatible with the patient's known clinical history of multiple myeloma. ACT 112: Negative or not required by law. The above report was generated using voice recognition software. It may contain grammatical, syntax or spelling errors. Electronically signed by: David Humphrey M.D. 01/05/2024 3:57 PM Soft Tissue Neck CT 01/05/24 15:11 CT OF THE NECK WITH IV CONTRAST CLINICAL HISTORY: multiple myeloma, pharyngitis COMPARISON STUDY: No previous studies for comparison. TECHNIQUE: Following IV administration of Optiray, helical axial images of the neck were obtained. Sagittal and coronal reconstructions were viewed. Automated exposure control was utilized for the study. A dose lowering technique was utilized adhering to the principles of ALARA. FINDINGS: Visualized portions of the brain parenchyma are unremarkable. A moderate right mastoid effusion is present. There is no prevertebral edema. Of note, the epiglottis and aryepiglottic folds are edematous. There is adjacent stranding. The findings result in severe supraglottic and glottic airway narrowing. No associated fluid collection is present. There is no cervical lymphadenopathy. The parotid and submandibular glands are normal. Major vasculature of the neck is patent. A right internal jugular Wtsuzc-m-Mukp is in place. Multiple lytic skeletal lesions are present. These include an expansile lateral right third rib lesion which is partially imaged. There is moderate circumferential wall thickening with mild stranding of the proximal thoracic esophagus. IMPRESSION: 1. Edematous aryepiglottic folds and epiglottis with adjacent stranding. The findings result in severe supraglottic and glottic airway narrowing. The findings are nonspecific and could reflect angioedema or an infectious process. Close clinical follow-up is recommended. A neoplastic etiology is considered less likely however imaging follow-up to ensure resolution is recommended. Findings discussed with Dr. Berg at time of dictation. 2. Wall thickening with adjacent stranding of the proximal thoracic esophagus. This may reflect esophagitis. 3. Lytic skeletal lesions consistent with the history of multiple myeloma. ACT 112: Negative or not required by law. Electronically signed by: Kyle Gutierrez M.D. 01/05/2024 4:15 PM Medications Administered Discontinued Medications Al Hydrox/Mg Hydrox/Simethicone (Aluminum/Magnesium Susp 30 Ml Udc) 15 ml PO NOW STA Stop: 01/05/24 13:18 Last Admin: 01/05/24 13:42 Dose: Not Given Documented By: BESSY Albuterol (Albut/Ipratrop 3mg/0.5mg Neb 3 Ml Vial) 3 ml NEB NOW STA; Protocol Stop: 01/05/24 11:37 Last Admin: 01/05/24 11:42 Dose: 3 ml Documented By: BESSY Dexamethasone Sodium Phosphate (DexamethasonePf 10 Mg/Ml Vial) 10 mg IV NOW ONE Stop: 01/05/24 11:37 Last Admin: 01/05/24 11:43 Dose: 10 mg Documented By: BESSY Sodium Chloride (Nss) 1,000 mls @ 999 mls/hr IV .Q1H1M ARIE Stop: 01/05/24 12:30 Last Infusion: 01/05/24 12:45 Dose: Infused Documented By: Admin: 01/05/24 11:44 Dose: 999 mls/hr Documented By: GCC Piperacillin Sod/Tazobactam Sod (Zosyn) 4.5 gm in 100 mls @ 200 mls/hr IV NOW ONE; Protocol Stop: 01/05/24 12:07 Last Infusion: 01/05/24 12:40 Dose: Infused Documented By: Admin: 01/05/24 12:10 Dose: 200 mls/hr Documented By: GCC Vancomycin HCl 2,750 mg/ (Sodium Chloride) 555 mls @ 200 mls/hr IV NOW ONE Stop: 01/05/24 14:24 Last Infusion: 01/05/24 15:47 Dose: Infused Documented By: Admin: 01/05/24 13:00 Dose: 200 mls/hr Documented By: BESSY Acetaminophen (Ofirmev) 1,000 mg in 100 mls @ 400 mls/hr IV NOW STA Stop: 01/05/24 12:23 Last Infusion: 01/05/24 12:47 Dose: Infused Documented By: Admin: 01/05/24 12:32 Dose: 400 mls/hr Documented By: BESSY Ioversol (Optiray 320 125ml) 120 ml IV ONCE ONE Stop: 01/05/24 15:37 Last Admin: 01/05/24 15:39 Dose: 120 ml Documented By: DELILAH Ketorolac Tromethamine (Ketorolac Tromethamine 15 Mg/Ml Vial) 15 mg IV NOW STA Stop: 01/05/24 13:19 Last Admin: 01/05/24 13:31 Dose: 15 mg Documented By: BESSY Lidocaine/Epinephrine (Lidocaine 1%/Epinephrine 1:100,000 50 Ml Vial) Confirm Administered Dose 30 ml .ROUTE .STK-MED ONE Stop: 01/05/24 18:15 Last Admin: 01/05/24 19:44 Dose: 8 ml Documented By: [id number] Multi-Ingredient Mouthwash/Gargle (First - Mouthwash Blm 5 Ml Udp) 5 ml PO ONE ONE Stop: 01/05/24 13:24 Last Admin: 01/05/24 13:34 Dose: 5 ml Documented By: BESSY Oxymetazoline HCl (Oxymetazoline 0.05% 30 Ml Btl) 1 sprays NA NOW ONE Stop: 01/05/24 16:45 Last Admin: 01/05/24 17:49 Dose: 1 sprays Documented By: TOYA Coding Level of Care Code 85448 CRITICAL CARE 1ST 30-74M Diagnoses Narrowing of airway J98.8 Epiglottitis J05.10 Hypophosphatemia E83.39 Sepsis A41.9
--- NOTE | 2024-01-05 20:15 | Operative Report ---
PG Post Operative Report Pre & Post Diagnosis Operation Date: 01/05/24 18:30 Pre-Op Diagnosis: Epiglottitis, Narrowing of Airway Post-Op Diagnosis: Epiglottitis, Narrowing of Airway I identified the patient and participated in the time-out.: Yes Procedure Operation Date: 01/05/24 18:30 Actual Procedures p Tracheostomy with Laryngoscopy and Biopsy(Not Applicable) - Robbi Rivera MD Surgeon Robbi Rivera MD Concrete Pavement Installer none Estimated Blood Loss 30 Findings Consistent with Post-Op Diagnosis Specimens Supraglottic swelling Indications airway obstruction Description of Procedure Under local anesthesia with sedation the patient draped in the usual fashion. I infiltrated with lidocaine and epinephrine. An incision made through the skin and through neck adipose tissue down tho the strap muscles. Muscles divided in the midline and elevated inferior and superior. The cricoid was lower down than expected almost under the sternal notch. I divided the thyroid isthmus with harmonic. I put a hook into the cricoid and elevated it. I made an incision into the trachea at 2nd ring and then divided the 3rd ring. The trachea was exposed and a #6 shiley cuffed fenestrated tube was placed. It was sutured in with 2-0 silk and then a dressing and ties were applied. The patient was then put to sleep. A laryngoscope was inserted in the mouth. I used a dental guard. I moved down to the supraglottic area Findings: Lobulated lesionhemorrhagic and edematous. No purulent fluid. Arose posterior and on the aryepiglottic folds obstructing the view of the larynx. Cultures and biopsies were taken. Tolerated the procedure well I attest to the content of the Intraoperative Record and any orders documented therein. Any exceptions are noted below.
[2024-01-05] MEDS ORDERED: STAT IV Infusion **Titration per Protocol STA (20:47)
[2024-01-05] MEDS ORDERED: AMPICILLIN/SULBACTAM SOD 3,000 MG/100 ML BAG IV SCH (20:47)
[2024-01-05] MEDS: POTASSIUM PHOSPHATE 6 MMOL in SODIUM CHLORIDE 0.9% 250 ML IV ONE (20:49)
[2024-01-05] MEDS: AMPICILLIN/SULBACTAM SOD 3,000 MG/100 ML BAG IV SCH (20:49)
[2024-01-05] MEDS: propofoL 1,000 MG/100 ML VIAL IV SCH (20:50)
[2024-01-05] MEDS: PROPOFOL BOLUS FROM BAG IV PRN (20:57)
[2024-01-05] MEDS: fentaNYL BOLUS from BAG IV PRN (20:58)
[2024-01-05] MEDS: PROPOFOL IV EMULSION 10 MG/ML 100 ML VIAL IV ONE (20:58)
[2024-01-05] MEDS: fentaNYL citrate 2,500 MCG/250 ML BAG IV ONE (20:58)
[2024-01-05] MEDS: fentaNYL citrate 2,500 MCG/250 ML BAG IV SCH (20:58)
[2024-01-05] MEDS ORDERED: CARBOHYDRATES FOR HYPOGLYCEMIA PO PRN (21:14)
[2024-01-05] MEDS ORDERED: GLUCAGON FOR INJ 1 MG VIAL SQ PRN (21:14)
[2024-01-05] MEDS ORDERED: GLUCOSE 10 TAB/TUBE PO PRN (21:14)
[2024-01-05] MEDS ORDERED: DEXTROSE 50% 50 ML SYRINGE IV PRN (21:14)
[2024-01-05] MEDS: ICU Protocol for HYPERglycemia SCH (21:18)
[2024-01-05] MEDS: MAGNESIUM SULFATE / D5W 1 GM/100 ML BAG IV SCH (21:19)
[2024-01-05] MEDS: LACTATED RINGER'S 500 ML IV ONE (21:19)
[2024-01-05] MEDS: BENZOCAINE/TETRACAIN/BUTAM 50 APPLN/5 GM CAN EXT STA (21:25)
--- NOTE | 2024-01-05 21:26 | Anesthesiology Progress Note ---
Date of Service January 05, 2024 Anesthesia Post Procedure Vital Signs Vital Signs: Temp Pulse Pulse Resp BP BP Pulse Ox 01/05/24 20:17 36.9 C 78 18 126/87 98 01/05/24 20:07 36.9 C 83 18 106/62 98 01/05/24 19:40 88 17 97 01/05/24 18:36 36.6 C 83 20 147/101 H 99 01/05/24 18:00 85 18 126/94 95 01/05/24 17:00 83 17 127/74 96 01/05/24 15:00 86 18 130/84 95 01/05/24 14:00 89 20 133/88 95 01/05/24 13:00 102 H 22 145/85 H 95 01/05/24 12:00 115 H 24 162/91 H 95 01/05/24 11:18 96 01/05/24 11:16 109 H 01/05/24 11:00 115 H 24 161/105 H 96 01/05/24 10:58 37.4 C 110 H 24 160/106 H 96 O2 Del Method FiO2 01/05/24 20:17 Mechanical Vent 01/05/24 20:07 Mechanical Vent 01/05/24 19:40 60 01/05/24 18:36 Room Air 01/05/24 18:00 Room Air 01/05/24 17:00 Room Air 01/05/24 15:00 Room Air 01/05/24 14:00 Room Air 01/05/24 13:00 Room Air 01/05/24 12:00 Room Air 01/05/24 11:18 Room Air 01/05/24 11:16 01/05/24 11:00 Room Air 01/05/24 10:58 Room Air Pain Intensity Throat: Pain Intensity: 0 Transfer of Care Handoff Completed per policy Notes Mental Status: alert / awake / arousable and participated in evaluation Patient Amnestic to Procedure: Yes Nausea / Vomiting: adequately controlled Pain: adequately controlled Airway Patency, RR, SpO2: stable & adequate (pt is now trached and sedated) BP & HR: stable & adequate Hydration State: stable & adequate Anesthetic Complications: no major complications apparent and Pt Satisfied with anesthetic care
--- NOTE | 2024-01-05 22:53 | XRay Report ---
Exam(s): XR CXR 1 VIEW EXAM: XR Chest, 1 View CLINICAL HISTORY: Reason for exam: eval tracheostomy placement and lung valencia. TECHNIQUE: Frontal view of the chest. COMPARISON: 01/05/24 FINDINGS: Lungs: Reduced lung volumes with bronchovascular crowding. Mild left basilar opacities, atelectasis or infiltrate. Pleural space: Blunted left costophrenic angle may represent small effusion. No visible pneumothorax. Heart: Unremarkable. No cardiomegaly or pulmonary vascular congestion. Bones/joints: No acute fracture. No dislocation. Tubes, lines and devices: Interval placement of tracheostomy with tip 4 cm from the keith. Right chest wall port catheter with tip in the distal SVC. IMPRESSION: 1. Reduced lung volumes with bronchovascular crowding. Mild left basilar opacities, atelectasis or infiltrate. 2. Interval placement of tracheostomy with tip 4 cm from the keith. 3. Blunted left costophrenic angle may represent small effusion. Electronically signed by: Fiona Lemus M.D. 01/05/24 22:52 PM
[2024-01-06] MEDS ORDERED: STAT IV Infusion **Titration per Protocol STA (00:12)
[2024-01-06 04:18] LABS: A calco-baum cmplx NotReported Not Detected (NotDetected); Bact fragilis Not Reported Not Detected (NotDetected); Blood Culture Id Panel See PCR Comment (NotDetected); C auris Not Reported Not Detected (NotDetected); Calbicans Not Reported Not Detected (NotDetected); Candida glabrata Not Reported Not Detected (NotDetected); Candida krusei Not Reported Not Detected (NotDetected); Cneoformans/gatti Not Reported Not Detected (NotDetected); Cparapsilosis Not Reported Not Detected (NotDetected); E cloacae compx Not Reported Not Detected (NotDetected); Efaecalis Not Reported Not Detected (NotDetected); Efaecium Not Reported Not Detected (NotDetected); Enterobacterales Not Reported Not Detected (NotDetected); Escherichia coli Not Reported Not Detected (NotDetected); H influenzae Not Reported DETECTED (NotDetected); K aerogenes Not Reported Not Detected (NotDetected); Koxytoca Not Reported Not Detected (NotDetected); Kpneumoniae grp Not Reported Not Detected (NotDetected); Lmonocyt Not Reported Not Detected (NotDetected); N meningitidis Not Reported Not Detected (NotDetected); P aeruginosa Not Reported Not Detected (NotDetected); Proteus spp Not Reported Not Detected (NotDetected); Salmonella spp Not Reported Not Detected (NotDetected); Staph lugdunensis Not Reported Not Detected (NotDetected); Staph spp. Not Reported Not Detected (NotDetected); Staphaureus Not Reported Not Detected (NotDetected); Staphepi Not Reported Not Detected (NotDetected); Stenmaltophilia Not Reported Not Detected (NotDetected); Strep agal(GrpB) Not Reported Not Detected (NotDetected); Strep pneum Not Reported Not Detected (NotDetected); Strep pyog (GrpA) Not Reported Not Detected (NotDetected); Strep spp Not Reported Not Detected (NotDetected)
[2024-01-06 04:22] LABS: Haemophilus influenzae DETECTED (NotDetected)
[2024-01-06 05:22] LABS: Hematocrit (blood only) 34.3 % (42.0-52.0); Hemoglobin 11.9 g/dl (14.0-18.0); Mean Corpuscular Hemoglobin 31.4 pg (25.0-34.0); Mean Corpuscular Hgb Conc 34.7 g/dL (32.0-36.0); Mean Corpuscular Volume 90.5 fL (80.0-100.0); Platelet Count 116 K/uL (130-400); RDW Coefficient of Variation 13.7 % (11.5-14.5); RDW Standard Deviation 45.1 fL (36.4-46.3); Red Blood Count 3.79 M/uL (4.70-6.10); White Blood Count 10.56 K/ul (4.8-10.8)
--- NOTE | 2024-01-06 05:29 | Electrocardiogram Report ---
Test Reason : Blood Pressure : */* mmHG Vent. Rate : 108 BPM Atrial Rate : 108 BPM P-R Int : 138 ms QRS Dur : 102 ms QT Int : 340 ms P-R-T Axes : 53 55 5 degrees QTcB Int : 455 ms Sinus tachycardia Nonspecific ST abnormality Abnormal ECG No previous ECGs available Confirmed by Matt Vang ([id number]) on 01/06/2024 5:28:51 AM Referred By: REFERRED SELF Confirmed By: Matt Vang
[2024-01-06 05:43] LABS: BUN Creatinine Ratio 22.4 (10-20); Calcium 8.5 mg/dl (8.6-10.3); Creatinine Clr Calc Pharmacy 117.1 ml/min; Magnesium 2.9 mg/dl (1.7-2.4); Phosphorus 2.2 mg/dl (2.5-4.9); Potassium 4.2 mmol/L (3.5-5.1)
--- NOTE | 2024-01-06 06:55 | Hospitalist Progress Note ---
Date of Service January 06, 2024 Assessment & Plan (1) Epiglottitis: (2) Hypertension: (3) Esophagitis: (4) Hypophosphatemia: (5) Narrowing of airway: Plan Pt is a 53 yo male with a past medical hx of hypothyroidism, anxiety/depression, and HLD presents to the hospital on 01/04 for several days fever, sore throat and then difficulty swallowing found to have epiglottitis, requiring tracheostomy and ICU care. Epiglottitis - patient presents with pharyngitis, mild URI symptoms, leukocytosis, - neck CT; severe supraglottic and glottic airway narrowing, nonspecific and could reflect angioedema versus infectious process versus neoplastic etiology imaging follow-up recommended, wall thickening and stranding of thoracic esophagus reflects esophagitis - Severe airway narrowing noted leading to tracheostomy on 01/04 - started on unasyn and transferred to ICU Multiple myeloma - currently undergoing treatment with [facility]; no treatment with chemo for the past month because of complications with fluid retention and SOB so next planned tx is in February possibly - osteolytic skeletal lesions seen chest CTA and soft tissue neck CT - on dexamethasone, montelukast, loratadine at home - holding all PO medications at this time due to tracheostomy Hypertension stable - hold home BP medications at this time given no PO intake - can add IV control if needed in future Chronic stable diagnoses: HLD - hold ASA and statin Hypothyroidism - hold levothyroxine A/D - hold Wellbutrin, escitalopram, zolpidem *all PO medications held given esophagitis - can consider IV medications if needed overnight VTE ppx: SCDs; defer pharmacologic management at this time Admission and Anticipated Discharge Date Admission Date: January 05, 2024 Supervising Physician Co-Signing Physician Notes I personally examined the patient and verified all mccracken points of history and exam, discussed case, and agree with decision making with Dr Tobar feeling better post trach vitals noted nad heent nc at mmm trach in place breathing unlabored no accessory muscles epiglottitis, H flu bacteremia w sepsis POA - continue abx, appreciate product management consultant and ICU assistance, await bx, continue supportive care, await return of ability to swallow hopefully can restart home meds soon Subjective Per admission document, patient started feeling sick 01/02 with sore throat, fever, and progressively had difficulty swallowing leading him to come to the hospital. Seen in the ICU this morning. Tracheostomy in place. Pt able to communicate most comfortably with shaking head yes/no. He notes pain at the area of the tracheostomy only. Hospital course: arrived to ED from after presenting to PCP with 2 day hx of fever, sore throat, worsening difficulty swallowing and breathing. In the ED, he was given a tracheostomy with laryngoscopy and biopsy. Negative biofire panel. Blood culture grew gram-negative bacteremia - H. Influenzae. He is being given ampicillin and feels much improved today compared to yesterday. Afebrile. Denies fever, chills, chest pain, heart palpitations, shortness of breath. No sick contacts. Prior to feeling sick, had some shortness of breath for several months but no painful swallowing. SOB was thought to be secondary to his chemotherapy treatments, which was stopped last month. Treatments estimated to continue in February using different medication. Review of Systems Review of Systems: Per HPI. Physical Exam Physical Exam: General:Alert and oriented, no acute distress, comfortable appearing, with tracheostomy this morning HEENT: Normocephalic, moist oral mucosa Cardio: Regular rate and rhythm, no murmur Resp:Lungs clear to auscultation top lobes, rhonchi lower right lobe GI: Soft and nontender, nondistended Skin: Warm, pink, dry Results & Data Results & Data Vital Signs (Past 12 Hours) Vital Signs Temp Pulse Pulse Resp BP BP Pulse Ox 01/06/24 03:31 63 25 H 96 01/06/24 01:00 35.9 C L 58 L 14 108/65 99 01/06/24 00:09 36.0 C L 67 14 91/55 L 99 01/06/24 00:00 60 01/06/24 00:00 01/05/24 23:39 36.0 C L 51 L 14 85/51 L 98 01/05/24 23:30 84/49 L 01/05/24 23:24 36.0 C L 53 L 14 98 01/05/24 23:07 51 L 14 98 01/05/24 22:00 36.1 C L 56 L 14 93/55 L 99 01/05/24 21:36 36.9 C 72 18 83/52 L 95 01/05/24 21:00 01/05/24 21:00 36.8 C 59 L 14 76/40 L 95 01/05/24 20:22 36.8 C 79 16 110/67 96 01/05/24 20:17 36.9 C 78 18 126/87 98 01/05/24 20:15 88 17 97 01/05/24 20:07 36.9 C 83 18 106/62 98 O2 Del Method FiO2 01/06/24 03:31 50 01/06/24 01:00 Trach Collar 01/06/24 00:09 01/06/24 00:00 01/06/24 00:00 50 01/05/24 23:39 01/05/24 23:30 01/05/24 23:24 01/05/24 23:07 50 01/05/24 22:00 Trach Collar 01/05/24 21:36 Mechanical Vent 01/05/24 21:00 Trach Collar 40 01/05/24 21:00 Trach Collar 01/05/24 20:22 Trach Collar 01/05/24 20:17 Mechanical Vent 01/05/24 20:15 60 01/05/24 20:07 Mechanical Vent Laboratory Results Anemia - 34.3 Thrombocytopenia - 116 Elevated fasting glucose - 141, on dextrose Low magnesium and phosphate upon admission, are being replenished. Magnesium - 2.9, phosphate - 2.2 Diagnostic Findings CXR IMPRESSION: 1. Reduced lung volumes with bronchovascular crowding. Mild left basilar opacities, atelectasis or infiltrate. 2. Interval placement of tracheostomy with tip 4 cm from the keith. 3. Blunted left costophrenic angle may represent small effusion. Chest CTA IMPRESSION: 1. No pulmonary emboli identified. 2. Nonspecific wall thickening of the upper to mid thoracic esophagus could be correlated with endoscopy. 3. Expansile destructive osteolytic skeletal lesions compatible with the p atolivier's known clinical history of multiple myeloma. Soft Neck Tissue IMPRESSION: 1. Edematous aryepiglottic folds and epiglottis with adjacent stranding. The findings result in severe supraglottic and glottic airway narrowing. The findings are nonspecific and could reflect angioedema or an infectious process. Close clinical follow-up is recommended. A neoplastic etiology is considered less likely however imaging follow-up to ensure resolution is recommended. Findings discussed with Dr. Berg at time of dictation. 2. Wall thickening with adjacent stranding of the proximal thoracic esophagus. This may reflect esophagitis. 3. Lytic skeletal lesions consistent with the history of multiple myeloma. ECG Additional Comments: Vent. Rate : 108 BPM Atrial Rate : 108 BPM WV Int : 138 ms QRS Dur : 102 ms QT Int : 340 ms P-R-T Axes : 53 55 5 degrees QTcB Int : 455 ms Sinus tachycardia Nonspecific ST abnormality Abnormal ECG No previous ECGs available Resident Activity Tracking Resident Involvement: Resident Care Provided Care Provided: Adult Hospital Medicine
[2024-01-06] MEDS: INSULIN ASPART PER UNIT CHARGE SC SCH (07:58)
[2024-01-06] MEDS: methylPREDNISolone 60 MG in SYRINGE 0 ML IV SCH (08:27)
[2024-01-06] MEDS ORDERED: SODIUM PHOSPHATE 3 MMOL/1 ML INFUSION IV STA (08:29)
--- NOTE | 2024-01-06 08:29 | Critical Care Progress Note ---
Date of Service January 06, 2024 Assessment & Plan (1) Narrowing of airway: (2) Epiglottitis: (3) Hypophosphatemia: (4) Sepsis: Plan Reason Critically Ill: 53 YOM presents to the ER for difficulty swallowing and sore throat, found to have airway narrowing requiring urgent tracheostomy placement. To the ICU post procedure on mechanical ventilation. Neuro - [facility] ICU: Negative --History of anxiety/depression Hold home medication for the time being --Lytic bone lesions - For his lytic bone pain- he takes Zometa at home and oxycodone Cardiac - Sepsis HX HTN - Technically met SIRS criteria in the ER with suspected source as throat- without organ dysfunction or elevation of lactate, MAPS >65 -Transient hypotension which resolved - Hold antihypertensives until hemodynamics proven stable and renal function evaluated. Respiratory - Acute respiratory failure requiring urgent tracheostomy, on mechanical ventilation - #[address]- CXR without pneumothorax and tracheostomy appears in good position -Trach management as per ENT GI - No acute needs RENAL/LYTES - Electrolyte disturbances - Replete per ICU protocol- likely secondary to decreased oral intake with difficulty swallowing - Chaves to gravity, leave in place while sedated and on ventilator ENDO - No acute needs- hx of hypothyroidism - Continue Synthroid when able- if going to be delayed from oral intake - consider changing to IV 30-50% of oral dose HEME - Multiple Myeloma - Gets care at [facility]- Daratumumab and - Epiglottis - it is possible that this may be secondary to MML - await biopsy results ID - Epiglottis --Gram-negative bacteremia Coccobacilli appreciated on the blood culture 01/05/2024 Continue with Unasyn Got 1 dose of vancomycin 01/05/2024 - CMV, EBV, Culture and Gram Stain, and cytology/path pending -Continue with steroids - PCT negative --Prophylaxis VTE: Lovenox on hold GI: None Lines: Peripheral, positive Chaves, size 6 cuffed trach placed 01/05/2024 Diet: N.p.o. Plan: In/out: +2.1 L, urine output 975 Blood culture is growing gram-negative coccobacilli. Source could be epiglottitis although there was no pus drainage as per the OR note Continue with Unasyn Phosphorus being replaced Patient's hemoglobin did drop from baseline. He is also +2 L that could be one of the reason He is oozing a little bit from the inferior side of the trach. Hold Lovenox today Repeat H&H later today Will put the patient on pressure support, DC sedation and trial of trach collar later today. I have personally spent 32 minutes of critical care time in the direct management of this patient. This is a life/limb threatening event. This includes time spent evaluating patient, direct bedside care, chart review, placing orders, interpretation of diagnostic studies, discussion with consultants, patient, and family members, as well as other required patient management activities. This time is exclusive of all separately billable procedures, and teaching time and separate from and in addition to any other critical care service time. Please note the above document was generated using voice recognition software. It may contain grammatical, syntax or spelling errors. Admission and Anticipated Discharge Date Admission Date: January 05, 2024 Subjective Patient seen and examined at bedside. No acute distress, no adverse events overnight He was on fentanyl 75 the time of examination He was awake alert oriented, answering all the questions by nodding his head Denied any chest pain, no shortness of breath No abdominal pain Did complains of discomfort at the trach The gauze around the trach was the hemorrhagic and it was being changed by the RT. Review of Systems 2 Review of Systems: All systems reviewed & are unremarkable except as noted in Subjective Physical Exam 2 Physical Exam: Constitutional: No acute distress HEENT: EOMI, PERRLA, size [address], little bit of bright red blood oozing around the inferior side of the trach Respiratory system: Good air entry bilaterally, no wheeze, no rhonchi, no crackles CVS: S1-S2 positive, no murmurs or gallops Abdomen: Soft, nontender, nondistended, positive bowel sounds x4 Extremities: +2 pulses bilaterally radialis/ dorsalis pedis, no cyanosis, no edema Neuro: Awake alert oriented x3 Psych: Normal mood and affect G/U: Positive Chaves Skin: no rashes, warm and dry Lymphatic: no cervical or axillary lymphadenopathy Results & Data Results & Data Vital Signs (Past 12 Hours) Vital Signs Temp Pulse Pulse Resp BP BP Pulse Ox 01/06/24 06:09 36.2 C L 56 L 14 97 01/06/24 06:00 36.2 C L 65 16 101/65 99 01/06/24 06:00 101/65 11/22/24 05:51 36.2 C L 54 L 14 97 01/06/24 05:15 36.2 C L 55 L 14 97 01/06/24 04:12 36.2 C L 61 14 108/67 99 01/06/24 04:00 01/06/24 03:31 63 25 H 96 01/06/24 03:00 36.3 C L 57 L 14 110/75 99 01/06/24 02:00 36.2 C L 65 17 113/80 100 01/06/24 01:18 35.9 C L 54 L 14 101/68 100 01/06/24 01:00 35.9 C L 58 L 14 108/65 99 01/06/24 00:09 36.0 C L 67 14 91/55 L 99 01/06/24 00:00 60 01/06/24 00:00 01/05/24 23:39 36.0 C L 51 L 14 85/51 L 98 01/05/24 23:30 84/49 L 01/05/24 23:24 36.0 C L 53 L 14 98 01/05/24 23:07 51 L 14 98 01/05/24 22:00 36.1 C L 56 L 14 93/55 L 99 01/05/24 21:36 36.9 C 72 18 83/52 L 95 01/05/24 21:00 01/05/24 21:00 36.8 C 59 L 14 76/40 L 95 O2 Del Method FiO2 01/06/24 06:09 01/06/24 06:00 01/06/24 06:00 01/06/24 05:51 01/06/24 05:15 01/06/24 04:12 01/06/24 04:00 50 01/06/24 03:31 50 01/06/24 03:00 01/06/24 02:00 01/06/24 01:18 01/06/24 01:00 Trach Collar 01/06/24 00:09 01/06/24 00:00 01/06/24 00:00 50 01/05/24 23:39 01/05/24 23:30 01/05/24 23:24 01/05/24 23:07 50 01/05/24 22:00 Trach Collar 01/05/24 21:36 Mechanical Vent 11/21/24 21:00 Trach Collar 40 01/05/24 21:00 Trach Collar Laboratory Results 01/06/24 04:43 01/06/24 04:43 Coding Level of Care Code 35572 CRITICAL CARE 1ST 30-74M Diagnoses Narrowing of airway J98.8 Epiglottitis J05.10 Hypophosphatemia E83.39 Sepsis A41.9
[2024-01-06] MEDS: SODIUM PHOSPHATE 15 MMOL in SODIUM CHLORIDE 0.9% 250 ML IV STA (08:56)
[2024-01-06] MEDS ORDERED: methylPREDNISolone 125 MG/2 ML VIAL IV SCH (09:00)
[2024-01-06] MEDS ORDERED: dexAMETHasone 6 MG in SYRINGE 0 ML IV SCH (09:00)
[2024-01-06] MEDS: PANTOprazole 40 MG in SYRINGE DAILY IV SCH (10:16)
[2024-01-06 10:27] LABS: INR 1.1 (0.9-1.1); Partial Thromboplastin Time 28 Seconds (21-31); Prothrombin Time 11.7 Seconds (9.0-12.0)
--- NOTE | 2024-01-06 11:13 | Ears,Nose,Throat Progress Note ---
Date of Service January 06, 2024 Assessment & Plan (1) Supraglottitis: Plan 53yM history of MM admitted with supraglottitis requiring awake trach 01/05/24 ([place]), DL/bx of supraglottic tissue. Vent weaned, tolerating trach mask. Cuff deflated today. Ongoing supraglottic edema on FFL. -Routine trach care per respiratory -Trial PMV for phonation -Continue high dose IV steroids -Continue abx per CCM -F/u path -Will continue to follow - hopefully will be able to decannulate prior to discharge pending resolution of supraglottic edema Admission and Anticipated Discharge Date Admission Date: January 05, 2024 Subjective NICK o/n. Vent weaned, tolerating trach mask. Some oozing from trach site. Physical Exam Physical Exam: WNWD, NAD On TM 28% FiO2 #[address] with mild bloody secretions, trach collar. Cuff deflated on exam EOMI, normal sclera Nares patent, no external deformity External ears normal Nonlabored respirations, no stridor AAO x3 Moving all extremities spontaneously Procedure: Flexible fiberoptic laryngoscopy Indication: Supraglottitis Details: Following the topical application of afrin and lidocaine, the flexible laryngoscope was inserted into the nasal cavity. The septum, turbinates, and nasal mucosa were normal. The nasopharynx was normal. The base of tongue and vallecula were normal. The epiglottis was mildly edematous, there was moderate edema and erythema of the bilateral arytenoids, and bilateral aryepiglottic folds. I was not able to fully visualize the bilateral false vocal folds or true vocal folds due to secretions and edema. The patient tolerated the procedure well. Results & Data Vital Signs (Past 12 Hours) Vital Signs Temp Pulse Pulse Resp BP Pulse Ox O2 Del Method 01/06/24 08:45 70 16 100 Trach Collar 01/06/24 07:20 70 12 98 01/06/24 06:09 36.2 C L 56 L 14 97 01/06/24 06:00 36.2 C L 65 16 101/65 99 01/06/24 06:00 101/65 01/06/24 05:51 36.2 C L 54 L 14 97 01/06/24 05:15 36.2 C L 55 L 14 97 01/06/24 04:12 36.2 C L 61 14 108/67 99 01/06/24 04:00 01/06/24 03:31 63 25 H 96 01/06/24 03:00 36.3 C L 57 L 14 110/75 99 01/06/24 02:00 36.2 C L 65 17 113/80 100 01/06/24 01:18 35.9 C L 54 L 14 101/68 100 01/06/24 01:00 35.9 C L 58 L 14 108/65 99 Trach Collar 01/06/24 00:09 36.0 C L 67 14 91/55 L 99 01/06/24 00:00 60 01/06/24 00:00 01/05/24 23:39 36.0 C L 51 L 14 85/51 L 98 01/05/24 23:30 84/49 L 01/05/24 23:24 36.0 C L 53 L 14 98 O2 Flow Rate FiO2 01/06/24 08:45 8 28 01/06/24 07:20 30 01/06/24 06:09 01/06/24 06:00 01/06/24 06:00 01/06/24 05:51 01/06/24 05:15 01/06/24 04:12 01/06/24 04:00 50 01/06/24 03:31 50 01/06/24 03:00 01/06/24 02:00 01/06/24 01:18 01/06/24 01:00 01/06/24 00:09 01/06/24 00:00 01/06/24 00:00 50 01/05/24 23:39 01/05/24 23:30 01/05/24 23:24 PG Care Time/CCT Total # of Minutes Spent Total Time Spent with Patient: Total time spent is greater than 50% in coordination of care (as documented) at patient's floor/unit and/or counseling patient: Coding Level of Care Code 54475 SUB INP/OBS CARE 2/35MIN (25 - SIGNIFICANT, SEPARATELY IDENTIFIABLE ) Diagnoses Supraglottitis with airway obstruction J04.31 Airway obstruction: with obstruction CPT Codes LARYNGOSCOPY DIAGNOSTIC FLEXIBLE - 72972 ([id number]) (1) Supraglottitis Airway obstruction: with obstruction Qualified Code(s): J04.31 - Supraglottitis, unspecified, with obstruction
[2024-01-06 12:26] LABS: Hematocrit (blood only) 35.6 % (42.0-52.0); Hemoglobin 12.1 g/dl (14.0-18.0)
--- NOTE | 2024-01-06 18:48 | Billing Data ---
Date of Service January 06, 2024 Coding Level of Care Code 22722 SUB INP/OBS CARE
[2024-01-06] MEDS ORDERED: MoRPHine SULFATE 2 MG/ML CARP IV PRN (20:21)
[2024-01-06] MEDS ORDERED: MoRPHine SULFATE 4 MG/ML 1 ML CARP\\VIAL IV PRN (20:21)
[2024-01-06] MEDS: NOREPINEPHRINE/D5W 4 MG/250 ML PLCT IV SCH (20:55)
[2024-01-07 05:12] LABS: Hematocrit (blood only) 34.9 % (42.0-52.0); Hemoglobin 11.8 g/dl (14.0-18.0); Mean Corpuscular Hemoglobin 31.1 pg (25.0-34.0); Mean Corpuscular Hgb Conc 33.8 g/dL (32.0-36.0); Mean Corpuscular Volume 92.1 fL (80.0-100.0); Platelet Count 121 K/uL (130-400); RDW Coefficient of Variation 13.6 % (11.5-14.5); RDW Standard Deviation 46.7 fL (36.4-46.3); Red Blood Count 3.79 M/uL (4.70-6.10); White Blood Count 9.19 K/ul (4.8-10.8)
[2024-01-07 05:25] LABS: BUN Creatinine Ratio 31.2 (10-20); Calcium 8.2 mg/dl (8.6-10.3); Phosphorus 1.9 mg/dl (2.5-4.9); Potassium 4.3 mmol/L (3.5-5.1)
--- NOTE | 2024-01-07 07:27 | Critical Care Progress Note ---
Date of Service January 07, 2024 Assessment & Plan (1) Narrowing of airway: (2) Epiglottitis: (3) Hypophosphatemia: (4) Sepsis: Plan Reason Critically Ill: 53 YOM presents to the ER for difficulty swallowing and sore throat, found to have airway narrowing requiring urgent tracheostomy placement. To the ICU post procedure on mechanical ventilation. Neuro - [facility] ICU: Negative --History of anxiety/depression Hold home medication for the time being --Lytic bone lesions - For his lytic bone pain- he takes Zometa at home and oxycodone Cardiac - Sepsis HX HTN - Technically met SIRS criteria in the ER with suspected source as throat- without organ dysfunction or elevation of lactate, MAPS >65 -Transient hypotension which resolved - Hold antihypertensives until hemodynamics proven stable and renal function evaluated. Respiratory - Acute respiratory failure requiring urgent tracheostomy, on mechanical ventilation - #[address]- CXR without pneumothorax and tracheostomy appears in good position -Trach management as per ENT GI - No acute needs RENAL/LYTES - Electrolyte disturbances - Replete per ICU protocol- likely secondary to decreased oral intake with difficulty swallowing - Chaves to gravity, leave in place while sedated and on ventilator ENDO - No acute needs- hx of hypothyroidism - Continue Synthroid when able- if going to be delayed from oral intake - consider changing to IV 30-50% of oral dose HEME - Multiple Myeloma - Gets care at [facility]- Daratumumab and - Epiglottis - it is possible that this may be secondary to MML - await biopsy results ID - Epiglottis --Gram-negative bacteremia --> haemophilus influenza Coccobacilli appreciated on the blood culture 01/05/2024 Continue with Unasyn Got 1 dose of vancomycin 01/05/2024 - CMV, EBV, Culture and Gram Stain, and cytology/path pending -Continue with steroids - PCT negative --Prophylaxis VTE: Lovenox on hold GI: None Lines: Peripheral, positive Chaves, size 6 cuffed trach placed 01/05/2024 Diet: N.p.o. Plan: In/out: +305, urine output 575 Continue with antibiotics Will try to see if the patient is able to swallow today. Phosphorus being replaced Okay to keep the cuff down the trach Hemodynamically stable to be downgrade to medical floor Please note the above document was generated using voice recognition software. It may contain grammatical, syntax or spelling errors.Any formal questions or concerns about the content, text or information contained within the body of this dictation should be directly addressed to the provider for clarification. Admission and Anticipated Discharge Date Admission Date: January 05, 2024 Subjective Patient seen and examined at bedside. No acute distress, notable symptoms on 9 He has been complaining of some discomfort at the trach site No oozing has decreased significantly from the inferior part of the trach site Denied any chest pain, no abdominal pain No shortness of breath Has been bringing up clear phlegm from the trach tube. Review of Systems 2 Review of Systems: All systems reviewed & are unremarkable except as noted in Subjective Physical Exam 2 Physical Exam: Constitutional: No acute distress HEENT: EOMI, PERRLA, size [address], little bit of bright red blood oozing around the inferior side of the trach Respiratory system: Good air entry bilaterally, no wheeze, no rhonchi, no crackles CVS: S1-S2 positive, no murmurs or gallops Abdomen: Soft, nontender, nondistended, positive bowel sounds x4 Extremities: +2 pulses bilaterally radialis/ dorsalis pedis, no cyanosis, no edema Neuro: Awake alert oriented x3 Psych: Normal mood and affect G/U: Positive Chaves Skin: no rashes, warm and dry Lymphatic: no cervical or axillary lymphadenopathy Results & Data Results & Data Vital Signs (Past 12 Hours) Vital Signs Temp Pulse Pulse Resp BP Pulse Ox O2 Del Method 01/07/24 04:15 36.3 C L 64 17 125/75 96 01/07/24 04:00 01/07/24 03:30 77 18 97 Trach Collar 01/07/24 03:09 36.5 C 59 L 13 98 01/07/24 03:01 155/103 H 01/07/24 02:03 36.2 C L 58 L 14 120/74 96 01/07/24 01:12 36.2 C L 60 13 98 01/07/24 01:00 158/94 H 01/07/24 00:00 64 01/07/24 00:00 36.4 C L 82 15 148/97 H 100 01/07/24 00:00 01/06/24 23:00 36.6 C 58 L 11 L 133/84 98 01/06/24 22:00 36.9 C 68 15 127/82 96 01/06/24 21:03 37.0 C 76 7 L 129/89 98 01/06/24 20:30 75 18 100 01/06/24 20:21 37.0 C 78 9 L 99 01/06/24 20:00 89 01/06/24 20:00 147/94 H 01/06/24 20:00 Trach Collar 01/06/24 20:00 O2 Flow Rate FiO2 01/07/24 04:15 01/07/24 04:00 28 01/07/24 03:30 6 28 01/07/24 03:09 01/07/24 03:01 01/07/24 02:03 01/07/24 01:12 01/07/24 01:00 01/07/24 00:00 01/07/24 00:00 01/07/24 00:00 28 01/06/24 23:00 01/06/24 22:00 01/06/24 21:03 01/06/24 20:30 8 28 01/06/24 20:21 01/06/24 20:00 01/06/24 20:00 01/06/24 20:00 01/06/24 20:00 28 Laboratory Results 01/07/24 04:30 01/07/24 04:30 Coding Level of Care Code 07922 SUB INP/OBS CARE 3/50MIN Diagnoses Narrowing of airway J98.8 Epiglottitis J05.10 Hypophosphatemia E83.39 Sepsis A41.9
[2024-01-07 07:51] LABS: Magnesium 2.7 mg/dl (1.7-2.4)
--- NOTE | 2024-01-07 09:26 | Hospitalist Progress Note ---
Date of Service January 07, 2024 Assessment & Plan (1) Epiglottitis: (2) Hypertension: (3) Esophagitis: (4) Hypophosphatemia: (5) Narrowing of airway: Plan Pt is a 53 yo male with a past medical hx of hypothyroidism, anxiety/depression, and HLD presents to the hospital on 01/04 for several days fever, sore throat and then difficulty swallowing found to have epiglottitis, requiring tracheostomy and ICU care. Patient downgraded today. Tracheostomy management per ENT. Continue Unasyn IV for now but may switch to appropriate PO once able to tolerate. Speech therapy evaluated patient today and okay to advance diet for trial today if no blue from the popsicle given this am is pulled from trach. Epiglottitis - patient presents with pharyngitis, mild URI symptoms, leukocytosis, - neck CT; severe supraglottic and glottic airway narrowing; would need f/u imaging in the future - Severe airway narrowing noted leading to tracheostomy on 01/04; on ICU after placement To be downgraded today w/ continued ENT follow up - Continue Unasyn; therapy duration of 10 days but may change depending on patient response. Multiple myeloma - currently undergoing treatment with [facility]; no treatment with chemo for the past month because of complications with fluid retention and SOB so next planned tx is in February possibly - osteolytic skeletal lesions seen chest CTA and soft tissue neck CT - on dexamethasone, montelukast, loratadine at home - holding all PO medications at this time due to tracheostomy; may restart if PO okay Hypertension stable - may restart home BP meds if PO okay Chronic stable diagnoses: HLD - hold ASA and statin Hypothyroidism - hold levothyroxine A/D - hold Wellbutrin, escitalopram, zolpidem VTE ppx: SCDs; defer pharmacologic management at this time Admission and Anticipated Discharge Date Admission Date: January 05, 2024 Supervising Physician Co-Signing Physician Notes Patient seen and examined, chart reviewed, case discussed with Grecia Macedo MD and I agree with the assessment and plan as above except as otherwise noted above. 53yo M who presented with difficulty swallowing ad distress and was found to have epiglottitis with critical airway narrowing. Taken emergently to the OR for trach placement with ENT. Trach is in place, small amount of blood oozing at site. Breathing unlabored, no stridor. Progressing well. Swallow eval with speech today. ENT to re-evaluate tomorrow AM, possible decannulation prior to dc if continuing to do well. Afebrile. Unasyn continued, minimum 7-10 day course. Prelim testing positiv for HiB Beta-lactamase positive.Bx pathology pending. Pt is progressing well on Unasyn, B-lactamase+ should be covered by sulbactam however if worsening --> switch to cefepime. No fevers, chills, or progressive leukocytosis. Pt clinically feels improved, and sore throat is improving. Agree w/ above. Subjective Evaluated at bedside and found to be awake alert and oriented in all spheres, afebrile, no acute distress. Patient states that he has been feeling some discomfort around the area of his tracheostomy. Denies having any chest pain, shortness of breath, fevers, chills, or any other symptom. Speech therapy evaluated patient at bedside earlier this morning and stated that patient would be okay for trial of regular diet today. Physical Exam Physical Exam: General:Alert and oriented, no acute distress, comfortable appearing, with tracheostomy this morning HEENT: Normocephalic, moist oral mucosa Cardio: Regular rate and rhythm, no murmur Resp:non-labored breathing, no respiratory distress GI: Soft and nontender, nondistended Skin: Warm, pink, dry Results & Data Results & Data Vital Signs (Past 12 Hours) Vital Signs Temp Pulse Pulse Resp BP Pulse Ox O2 Del Method 01/07/24 04:15 36.3 C L 64 17 125/75 96 01/07/24 04:00 01/07/24 03:30 77 18 97 Trach Collar 01/07/24 03:09 36.5 C 59 L 13 98 01/07/24 03:01 155/103 H 01/07/24 02:03 36.2 C L 58 L 14 120/74 96 01/07/24 01:12 36.2 C L 60 13 98 01/07/24 01:00 158/94 H 01/07/24 00:00 64 01/07/24 00:00 36.4 C L 82 15 148/97 H 100 01/07/24 00:00 01/06/24 23:00 36.6 C 58 L 11 L 133/84 98 01/06/24 22:00 36.9 C 68 15 127/82 96 O2 Flow Rate FiO2 01/07/24 04:15 01/07/24 04:00 28 01/07/24 03:30 6 28 01/07/24 03:09 01/07/24 03:01 01/07/24 02:03 01/07/24 01:12 01/07/24 01:00 01/07/24 00:00 01/07/24 00:00 01/07/24 00:00 28 01/06/24 23:00 01/06/24 22:00 Resident Activity Tracking Resident Involvement: Resident Care Provided Care Provided: Adult Hospital Medicine
[2024-01-07] MEDS: ACETAMINOPHEN 1,000 MG/100 ML VIAL IV PRN (09:46)
--- NOTE | 2024-01-07 12:00 | Billing Data ---
Date of Service January 07, 2024 Coding Level of Care Code 69535 INT INP/OBS CARE
[2024-01-07] MEDS: ENOXAPARIN INJ 40 MG/0.4 ML SYR SQ SCH (13:08)
[2024-01-07] MEDS: buPROPion XL 150 MG TABCR PO SCH (16:14)
[2024-01-07] MEDS: ESCITALOPRAM OXALATE 20 MG TAB PO SCH (16:14)
[2024-01-07] MEDS: MONTELUKAST SODIUM 10 MG TABLET PO SCH (21:09)
[2024-01-07] MEDS: methylPREDNISolone 40 MG in SYRINGE 0 ML IV SCH (21:10)
[2024-01-08 04:59] LABS: Hematocrit (blood only) 35.9 % (42.0-52.0); Hemoglobin 11.9 g/dl (14.0-18.0); Mean Corpuscular Hemoglobin 30.7 pg (25.0-34.0); Mean Corpuscular Hgb Conc 33.1 g/dL (32.0-36.0); Mean Corpuscular Volume 92.5 fL (80.0-100.0); Mean Platelet Volume 10.4 fL (9.4-12.4); Platelet Count 131 K/uL (130-400); RDW Coefficient of Variation 13.1 % (11.5-14.5); RDW Standard Deviation 43.8 fL (36.4-46.3); Red Blood Count 3.88 M/uL (4.70-6.10); White Blood Count 5.44 K/ul (4.8-10.8)
[2024-01-08 05:11] LABS: BUN Creatinine Ratio 34.3 (10-20); Calcium 8.2 mg/dl (8.6-10.3); Creatinine Clr Calc Pharmacy 169.8 ml/min; Phosphorus 2.3 mg/dl (2.5-4.9); Potassium 4.4 mmol/L (3.5-5.1)
[2024-01-08] MEDS: LEVOTHYROXINE SODIUM 88 MCG TABLET PO SCH (06:29)
[2024-01-08] MEDS: FUROSEMIDE 20 MG TAB PO SCH (08:05)
[2024-01-08] MEDS: METOPROLOL SUCC 25MG EXT REL TAB PO SCH (08:06)
[2024-01-08] MEDS: ROSUVASTATIN CALCIUM 10 MG TAB PO SCH (08:06)
[2024-01-08] MEDS: ACETAMINOPHEN 500 MG TAB PO PRN (08:07)
--- NOTE | 2024-01-08 08:29 | Pulmonology Progress Note ---
Date of Service January 08, 2024 Assessment & Plan (1) Narrowing of airway: (2) Epiglottitis: Plan 53 YOM presents to the ER for difficulty swallowing and sore throat, found to have airway narrowing requiring urgent tracheostomy placement. To the ICU post procedure on mechanical ventilation. -- Acute respiratory failure requiring urgent tracheostomy S/p emergent tracheostomy 01/05/2024 - #[address]- CXR without pneumothorax and tracheostomy appears in good position -Trach management as per ENT --Gram-negative bacteremia --> haemophilus influenza Coccobacilli appreciated on the blood culture 01/05/2024 Continue with Unasyn Got 1 dose of vancomycin 01/05/2024 Surgical tissue culture growing Prevotella melaninogenica, and anaerobe. Unasyn should cover that as well - CMV, EBV, Culture and Gram Stain, and cytology/path pending -Continue with steroids - PCT negative Plan: In/out: -875, urine output 1375 Continue with antibiotics Phosphorus being replaced Patient is tolerating diet without any issues Suctioning as per RT. Trach management as per ENT No further recommendation from pulmonary perspective, will sign off Please call directly with any questions Please note the above document was generated using voice recognition software. It may contain grammatical, syntax or spelling errors.Any formal questions or concerns about the content, text or information contained within the body of this dictation should be directly addressed to the provider for clarification. Admission and Anticipated Discharge Date Admission Date: January 05, 2024 Subjective Patient seen and examined at bedside. No acute distress, no adverse events overnight He was saturating well on trach collar. He has speech well on and talking in full sentences without any issues Denied any chest pain, no shortness of breath No abdominal pain Positive flatulence but no bowel movement Still complains of some discomfort at the site of the trach Review of Systems 2 Review of Systems: All systems reviewed & are unremarkable except as noted in Subjective Physical Exam 2 Physical Exam: Constitutional: No acute distress HEENT: EOMI, PERRLA, size [address] Respiratory system: Good air entry bilaterally, no wheeze, no rhonchi, no crackles CVS: S1-S2 positive, no murmurs or gallops Abdomen: Soft, nontender, nondistended, positive bowel sounds x4 Extremities: +2 pulses bilaterally radialis/ dorsalis pedis, no cyanosis, no edema Neuro: Awake alert oriented x3 Psych: Normal mood and affect G/U: Positive Chaves Skin: no rashes, warm and dry Lymphatic: no cervical or axillary lymphadenopathy Results & Data Results & Data Vital Signs (Past 12 Hours) Vital Signs Temp Pulse Pulse Resp BP Pulse Ox O2 Del Method 01/08/24 06:06 36.5 C 56 L 9 L 100 01/08/24 05:09 36.4 C L 58 L 13 98 01/08/24 05:00 148/90 H 01/08/24 05:00 148/90 H 01/08/24 04:57 36.4 C L 60 14 98 01/08/24 04:00 36.4 C L 57 L 14 98 01/08/24 04:00 139/83 01/08/24 03:00 130/79 01/08/24 03:00 36.5 C 56 L 14 97 01/08/24 02:06 36.7 C 64 17 96 01/08/24 01:03 29.5 C L 64 12 98 01/08/24 01:00 145/88 H 01/08/24 01:00 61 17 98 Trach Collar 01/08/24 00:24 33.9 C L 57 L 6 L 99 01/08/24 00:00 60 01/07/24 23:00 34.3 C L 63 18 100 01/07/24 23:00 139/94 01/07/24 22:06 36.5 C 63 10 L 100 01/07/24 22:00 150/86 H 01/07/24 21:18 36.5 C 68 16 100 01/07/24 21:00 141/89 H O2 Flow Rate FiO2 01/08/24 06:06 01/08/24 05:09 01/08/24 05:00 01/08/24 05:00 01/08/24 04:57 01/08/24 04:00 01/08/24 04:00 01/08/24 03:00 01/08/24 03:00 01/08/24 02:06 01/08/24 01:03 01/08/24 01:00 01/08/24 01:00 6 28 01/08/24 00:24 01/08/24 00:00 01/07/24 23:00 01/07/24 23:00 01/07/24 22:06 01/07/24 22:00 01/07/24 21:18 01/07/24 21:00 Laboratory Results 01/08/24 04:27 01/08/24 04:27 PG Care Time/CCT Total # of Minutes Spent Total Time Spent with Patient: Total time spent is greater than 50% in coordination of care (as documented) at patient's floor/unit and/or counseling patient: Coding Level of Care Code 84416 SUB INP/OBS CARE 2/35MIN Diagnoses Narrowing of airway J98.8 Epiglottitis J05.10
--- NOTE | 2024-01-08 10:10 | Ears,Nose,Throat Progress Note ---
Date of Service January 08, 2024 Assessment & Plan (1) Supraglottitis: Plan 53yM history of MM admitted with supraglottitis requiring awake trach 01/05/24 (Miguel), DL/bx of supraglottic tissue. Doing well on TM with PMV, tolerating diet. Edema is resolving nicely. BCx +H. flu. -Routine trach care per respiratory, can gently place mepilex dressing at inferior faceplate of trach to temporize friction -Continue regular diet -Continue abx -F/u path -Will plan for trach tube change at POD5 and subsequent capping trial, if doing well can decannulate on Tuesday either in hospital or as an outpatient in office Admission and Anticipated Discharge Date Admission Date: January 05, 2024 Subjective NICK o/n. Tolerating TM and diet. Some pain at trach site. Voice normalizing, mild sore throat in AM Physical Exam Physical Exam: WNWD, NAD On TM 28% FiO2 #[address], cuff deflated, moderate inferior wound skin breakdown without bleeding. PMV in place, normal voice EOMI, normal sclera Nares patent, no external deformity External ears normal Nonlabored respirations, no stridor AAO x3 Moving all extremities spontaneously Procedure: Flexible fiberoptic laryngoscopy Indication: Supraglottitis Details: Following the topical application of afrin and lidocaine, the flexible laryngoscope was inserted into the nasal cavity. The septum, turbinates, and nasal mucosa were normal. The nasopharynx was normal. The base of tongue and vallecula were normal. The epiglottis was normal, there was mild edema and erythema of the bilateral arytenoids, and bilateral aryepiglottic folds.There was normal mobility of the true vocal folds without lesion or edema. . The patient tolerated the procedure well. Results & Data Vital Signs (Past 12 Hours) Vital Signs Temp Pulse Pulse Resp BP Pulse Ox O2 Del Method 01/08/24 08:03 36.6 C 77 15 99 01/08/24 08:00 151/93 H 01/08/24 08:00 Trach Collar 01/08/24 07:54 36.5 C 66 14 98 01/08/24 07:00 134/88 01/08/24 07:00 134/88 01/08/24 07:00 134/88 01/08/24 07:00 36.5 C 55 L 16 99 01/08/24 07:00 36.6 C 01/08/24 06:06 36.5 C 56 L 9 L 100 01/08/24 05:09 36.4 C L 58 L 13 98 01/08/24 05:00 148/90 H 01/08/24 05:00 148/90 H 01/08/24 04:57 36.4 C L 60 14 98 01/08/24 04:00 36.4 C L 57 L 14 98 01/08/24 04:00 139/83 01/08/24 03:00 130/79 01/08/24 03:00 36.5 C 56 L 14 97 01/08/24 02:06 36.7 C 64 17 96 01/08/24 01:03 29.5 C L 64 12 98 01/08/24 01:00 145/88 H 01/08/24 01:00 61 17 98 Trach Collar 01/08/24 00:24 33.9 C L 57 L 6 L 99 01/08/24 00:00 60 01/07/24 23:00 34.3 C L 63 18 100 01/07/24 23:00 139/94 01/07/24 22:06 36.5 C 63 10 L 100 O2 Flow Rate FiO2 01/08/24 08:03 01/08/24 08:00 01/08/24 08:00 28 01/08/24 07:54 01/08/24 07:00 01/08/24 07:00 01/08/24 07:00 01/08/24 07:00 01/08/24 07:00 01/08/24 06:06 01/08/24 05:09 01/08/24 05:00 01/08/24 05:00 01/08/24 04:57 01/08/24 04:00 01/08/24 04:00 01/08/24 03:00 01/08/24 03:00 01/08/24 02:06 01/08/24 01:03 01/08/24 01:00 01/08/24 01:00 6 28 01/08/24 00:24 01/08/24 00:00 01/07/24 23:00 01/07/24 23:00 01/07/24 22:06 PG Care Time/CCT Total # of Minutes Spent Total Time Spent with Patient: Total time spent is greater than 50% in coordination of care (as documented) at patient's floor/unit and/or counseling patient: Coding Level of Care Code 94084 SUB INP/OBS CARE 2/35MIN (25 - SIGNIFICANT, SEPARATELY IDENTIFIABLE ) Diagnoses Supraglottitis with airway obstruction J04.31 Airway obstruction: with obstruction CPT Codes LARYNGOSCOPY DIAGNOSTIC FLEXIBLE - 14368 ([id number]) (1) Supraglottitis Airway obstruction: with obstruction Qualified Code(s): J04.31 - Supraglottitis, unspecified, with obstruction
--- NOTE | 2024-01-08 10:43 | Hospitalist Progress Note ---
Date of Service January 08, 2024 Assessment & Plan (1) Epiglottitis: (2) Hypertension: (3) Esophagitis: (4) Hypophosphatemia: (5) Narrowing of airway: Plan Pt is a 53 yo male with a past medical hx of hypothyroidism, anxiety/depression, and HLD presents to the hospital on 01/04 for several days fever, sore throat and then difficulty swallowing found to have epiglottitis, requiring tracheostomy and ICU care. Epiglottitis - patient presents with pharyngitis, mild URI symptoms, leukocytosis - neck CT; severe supraglottic and glottic airway narrowing; would need f/u imaging in the future - Severe airway narrowing noted leading to tracheostomy on 01/04; downgraded from ICU yesterday - Continue Unasyn; therapy duration of 10 days but may change depending on patient response. Blood culture w/ H. flu and Wound culture w/ Prevotella >> Given clinical improvement, may continue current abx therapy, but if worsens, may consider carbapenem given prevotella on culture - Currently on Methylprednisolone 40 mg IV bid; may consider decreasing to 40 mg daily tomorrow - No ENT business risk consultant over the weekend. Pending ENT reccs with regards to tracheostomy management and possible decannulation Multiple myeloma - currently undergoing treatment with [facility]; no treatment with chemo for the past month because of complications with fluid retention and SOB so next planned tx is in February possibly - osteolytic skeletal lesions seen chest CTA and soft tissue neck CT - on dexamethasone, montelukast, loratadine at home; resumed given PO tolerance Hypertension stable - restart home meds given PO okay Chronic stable diagnoses: HLD - ASA and statin Hypothyroidism - levothyroxine A/D - Wellbutrin, escitalopram, zolpidem VTE ppx: SCDs; defer pharmacologic management at this time Admission and Anticipated Discharge Date Admission Date: January 05, 2024 Supervising Physician Co-Signing Physician Notes Patient seen and examined, chart reviewed, case discussed with Dr. Macedo and I agree with the assessment and plan as above except as otherwise noted Labs and images reviewed 53yo M s/p tracheostomy due to epiglottitis cx + for HiB. Pathology pending. Pt also with underlying hx of MM. Seen today for reassessment in the ICU, pt is PCU status. Doing extremely well and progressing well. Is tolerating a diet. Has some discomfort where his tracheostomy is rubbing on his sternum but no further bleeding/oozing is present at bedside. He is breathing comfortably on trach collar. Normotensive, no tachycardia. Patient was seen by ENT today and evaluated does have resolving edema. Is anticipated for possible decannulation Tuesday/Tuesday and can continue current antibiotics. No concerns at bedside, no questions at bedside. Agree with assessment and management as above Subjective Feeling overall well. No tenderness around his tracheostomy save for when they are moving it. Tolerating meals and PO meds okay. No fevers, chills, chest pain, SOB, or any other sxs. Physical Exam Physical Exam: General:Alert and oriented, no acute distress, comfortable appearing, with tracheostomy this morning HEENT: Normocephalic, moist oral mucosa Cardio: Regular rate and rhythm, no murmur Resp:non-labored breathing, no respiratory distress GI: Soft and nontender, nondistended Skin: Warm, pink, dry Results & Data Results & Data Vital Signs (Past 12 Hours) Vital Signs Temp Pulse Pulse Resp BP Pulse Ox O2 Del Method 01/08/24 08:03 36.6 C 77 15 99 01/08/24 08:00 151/93 H 01/08/24 08:00 Trach Collar 01/08/24 07:54 36.5 C 66 14 98 01/08/24 07:00 134/88 01/08/24 07:00 134/88 01/08/24 07:00 134/88 01/08/24 07:00 36.5 C 55 L 16 99 01/08/24 07:00 36.6 C 01/08/24 06:06 36.5 C 56 L 9 L 100 01/08/24 05:09 36.4 C L 58 L 13 98 01/08/24 05:00 148/90 H 01/08/24 05:00 148/90 H 01/08/24 04:57 36.4 C L 60 14 98 01/08/24 04:00 36.4 C L 57 L 14 98 01/08/24 04:00 139/83 01/08/24 03:00 130/79 01/08/24 03:00 36.5 C 56 L 14 97 01/08/24 02:06 36.7 C 64 17 96 01/08/24 01:03 29.5 C L 64 12 98 01/08/24 01:00 145/88 H 01/08/24 01:00 61 17 98 Trach Collar 01/08/24 00:24 33.9 C L 57 L 6 L 99 01/08/24 00:00 60 01/07/24 23:00 34.3 C L 63 18 100 01/07/24 23:00 139/94 O2 Flow Rate FiO2 01/08/24 08:03 01/08/24 08:00 01/08/24 08:00 28 01/08/24 07:54 01/08/24 07:00 01/08/24 07:00 01/08/24 07:00 01/08/24 07:00 01/08/24 07:00 01/08/24 06:06 01/08/24 05:09 01/08/24 05:00 01/08/24 05:00 01/08/24 04:57 01/08/24 04:00 01/08/24 04:00 01/08/24 03:00 01/08/24 03:00 01/08/24 02:06 01/08/24 01:03 01/08/24 01:00 01/08/24 01:00 6 28 01/08/24 00:24 01/08/24 00:00 01/07/24 23:00 01/07/24 23:00 Resident Activity Tracking Resident Involvement: Resident Care Provided Care Provided: Adult Hospital Medicine
[2024-01-08] MEDS: POT PHOSPHATE MONOBASIC W/ SOD TAB PO SCH (10:56)
--- NOTE | 2024-01-08 14:02 | Billing Data ---
Date of Service January 08, 2024 Coding Level of Care Code 38882 INT INP/OBS CARE
--- NOTE | 2024-01-09 07:04 | Hospitalist Progress Note ---
Date of Service January 09, 2024 Assessment & Plan (1) Epiglottitis: (2) Hypertension: (3) Esophagitis: (4) Hypophosphatemia: (5) Narrowing of airway: Plan Pt is a 53 yo male with a past medical hx of hypothyroidism, anxiety/depression, and HLD presents to the hospital on 01/04 for several days fever, sore throat and then difficulty swallowing found to have epiglottitis, requiring tracheostomy and ICU care. 1) Epiglottitis - patient presents with pharyngitis, mild URI symptoms, leukocytosis - neck CT; severe supraglottic and glottic airway narrowing; would need f/u imaging in the future - Severe airway narrowing noted leading to tracheostomy on 01/04; downgraded from ICU yesterday - Stopped Unasyn, started Augmentin; therapy duration of 10 days but may change depending on patient response. Blood culture w/ H. influenzae and Wound culture w/ Prevotella Given clinical improvement, will continue current abx therapy, as Prevotella sensitive to Augmentin - although Prevotella may have amoxicillin-resistance, Augmentin (w/ B-lactamase inhibitor, also) should cover this organism - Currently on Methylprednisolone 40 mg IV bid; may consider decreasing to 40 mg daily tomorrow - No ENT ribbon tier over the weekend. Pending ENT reccs with regards to tracheostomy management and possible decannulation 2) Sepsis/Bacteremia - Blood culture w/ H. influenzae and Wound culture w/ Prevotella - Given clinical improvement, will continue current abx therapy - although Prevotella may have amoxicillin-resistance, Augmentin (w/ B-lactamase inhibitor, also) should cover this organism 3) Multiple myeloma - currently undergoing treatment with [facility]; no treatment with chemo for the past month because of complications with fluid retention and SOB so next planned tx is in February - osteolytic skeletal lesions seen chest CTA and soft tissue neck CT - on dexamethasone, montelukast, loratadine at home; resumed given PO tolerance 4) Hypertension - stable - restart home meds given PO okay Chronic stable diagnoses: HLD - ASA and statin Hypothyroidism - levothyroxine Anxiety/depression - Wellbutrin, escitalopram, zolpidem Code status: Full code VTE ppx: SCDs; defer pharmacologic management at this time Disposition: PCU-Tele FENGI: Regular Admission and Anticipated Discharge Date Admission Date: January 05, 2024 Supervising Physician Co-Signing Physician Notes ATTESTATION I also saw the patient and confirmed mccracken portions of the history and exam. I agree with the impression and plan in the resident documentation, and as summarized below. No complaints today this afternoon. He has good understanding of the plan over the next couple of days. EXAM VS as noted Alert and oriented. NAD CV regular Respirations non labored DATA Labs Hgb stable at 11.9 No white count Preserved renal function Imaging No new imaging Micro H. flu betalactamase 2/2 blood Prevotella melaninogenica in tissue IMPRESSION & PLAN Suprapiglottis S/P tracheostomy H. flu (+) blood Multiple myeloma Transitioned to Augmentin transition to PO prednisone tomorrow D/C peres Additional per resident documentation Subjective Patient is a 53 yo M w/ a PMHx of past medical hx of hypothyroidism, anxiety/depression, HLD, and multiple myeloma presented to the hospital on 01/04 for several days fever, sore throat and then difficulty swallowing found to have epiglottitis, requiring tracheostomy and ICU care. Saw him today and he's doing well, AAO x 4, progressively improving, feels better every day since admission. Feeling overall well. No tenderness around his tracheostomy save for when they are moving it. Tolerating meals, PO meds, no fevers, chills, chest pain, SOB, AP or other Sx's. Review of Systems Constitutional: no fever, no chills and no fatigue Ear, Nose, Mouth, Throat: no change in voice and no dysphagia Respiratory: + dyspnea Cardiovascular: no chest pain, no dyspnea and no lightheadedness Gastrointestinal: no abdominal pain, no nausea, no vomiting and no change in bowel habits Genitourinary: no dysuria Physical Exam Constitutional: WD/WN, vitals as above Respiratory: normal respiratory effort, lungs clear to auscultation Auscultation: lungs clear to auscultation bilaterally; no crackles and no wheezes Cardiovascular: RRR, no murmur, no edema Gastrointestinal (Abdomen): normal bowel sounds, soft, nontender, no hepatosplenomegaly Psychiatric: A+Ox3, euthymic affect Results & Data Results & Data Vital Signs (Past 12 Hours) Vital Signs Temp Pulse Pulse Resp BP Pulse Ox O2 Del Method 01/09/24 06:06 36.4 C L 55 L 18 96 01/09/24 06:00 165/100 H 01/09/24 06:00 165/100 H 01/09/24 06:00 165/100 H 01/09/24 05:45 36.5 C 52 L 15 97 01/09/24 05:03 36.5 C 56 L 16 98 01/09/24 04:30 36.5 C 55 L 15 99 01/09/24 04:00 148/96 H 01/09/24 04:00 148/96 H 01/09/24 03:57 56 L 9 L 98 01/09/24 03:39 54 L 18 98 Trach Collar 01/09/24 03:03 51 L 13 98 01/09/24 02:09 63 13 99 01/09/24 01:09 53 L 17 96 01/09/24 00:02 58 L 20 99 01/09/24 00:00 140/103 H 01/09/24 00:00 140/103 H 01/09/24 00:00 140/103 H 01/09/24 00:00 52 L 01/08/24 23:54 153/98 H 01/08/24 23:00 36.6 C 01/08/24 23:00 37.0 C 54 L 12 153/98 H 99 01/08/24 20:00 Trach Collar 01/08/24 19:00 36.6 C 01/08/24 19:00 37.0 C 58 L 17 136/74 99 O2 Flow Rate FiO2 01/09/24 06:06 01/09/24 06:00 01/09/24 06:00 01/09/24 06:00 01/09/24 05:45 01/09/24 05:03 01/09/24 04:30 01/09/24 04:00 01/09/24 04:00 01/09/24 03:57 01/09/24 03:39 6 28 01/09/24 03:03 01/09/24 02:09 01/09/24 01:09 01/09/24 00:02 01/09/24 00:00 01/09/24 00:00 01/09/24 00:00 01/09/24 00:00 01/08/24 23:54 01/08/24 23:00 01/08/24 23:00 01/08/24 20:00 28 01/08/24 19:00 01/08/24 19:00 Resident Activity Tracking Resident Involvement: Resident Care Provided Care Provided: Adult Hospital Medicine
[2024-01-09 13:51] LABS: CMV IgG Antibody <0.60 U/mL; CMV IgM Antibody <30.00 AU/mL
[2024-01-09 15:03] LABS: EBV Nuclear Ag Antibody <18.00 U/mL; Epstein Barr Virus Early Ag Ab <9.00 U/mL
[2024-01-09] MEDS: AMOXICILLIN/CLAVULANATE 875 MG TAB PO SCH (19:55)
[2024-01-10 04:36] LABS: Basophils # (auto) 0.01 K/uL (0.00-0.20); Basophils % (auto) 0.2 %; Eosinophils # (auto) 0.03 K/uL (0.00-0.50); Eosinophils % (auto) 0.6 %; Hematocrit (blood only) 35.3 % (42.0-52.0); Hemoglobin 12.2 g/dl (14.0-18.0); Immature Granulocytes # (auto) 0.05 K/uL (0.01-0.20); Immature Granulocytes % (auto) 0.9 %; Lymphocytes # (auto) 0.67 K/uL (1.20-3.40); Lymphocytes % (auto) 12.5 %; Mean Corpuscular Hemoglobin 31.4 pg (25.0-34.0); Mean Corpuscular Hgb Conc 34.6 g/dL (32.0-36.0); Mean Corpuscular Volume 90.7 fL (80.0-100.0); Monocytes # (auto) 0.64 K/uL (0.11-0.59); Monocytes % (auto) 11.9 %; Neutrophils # (auto) 3.98 K/uL (1.40-6.50); Neutrophils % (auto) 73.9 %; Platelet Count 144 K/uL (130-400); RDW Coefficient of Variation 12.7 % (11.5-14.5); RDW Standard Deviation 42.1 fL (36.4-46.3); Red Blood Count 3.89 M/uL (4.70-6.10); White Blood Count 5.38 K/ul (4.8-10.8)
[2024-01-10 04:50] LABS: Albumin Globulin Ratio 1.6 (0.9-2); Albumin Level 3.5 gm/dl (3.4-5.0); BUN Creatinine Ratio 33.3 (10-20); Bilirubin,Total 0.7 mg/dl (0.2-1.0); Calcium 8.2 mg/dl (8.6-10.3); Creatinine Clr Calc Pharmacy 148.1 ml/min; Globulin 2.2 gm/dl (2.5-4.0); Potassium 3.8 mmol/L (3.5-5.1); Total Protein 5.7 gm/dl (6.0-8.3)
--- NOTE | 2024-01-10 07:00 | Hospitalist Progress Note ---
Date of Service January 10, 2024 Assessment & Plan (1) Epiglottitis: (2) Hypertension: (3) Esophagitis: (4) Hypophosphatemia: (5) Narrowing of airway: Plan Pt is a 53 yo male with a past medical hx of hypothyroidism, anxiety/depression, and HLD presents to the hospital on 01/04 for several days fever, sore throat and then difficulty swallowing found to have epiglottitis, requiring tracheostomy and ICU care. 1) Epiglottitis - patient presented with pharyngitis, mild URI symptoms, leukocytosis - neck CT; severe supraglottic and glottic airway narrowing; would need f/u imaging in the future - Severe airway narrowing noted leading to tracheostomy on 01/04; downgraded from ICU yesterday - Stopped Unasyn, started Augmentin; therapy duration of 10 days but may change depending on patient response. Blood culture w/ H. influenzae and Wound culture w/ Prevotella Given clinical improvement, will continue current abx therapy, as Prevotella sensitive to Augmentin - although Prevotella may have amoxicillin-resistance, Augmentin (w/ B-lactamase inhibitor, also) should cover this organism - Currently on Methylprednisolone 40 mg, PO, daily - ENT reccs with regards to tracheostomy management given, they removed the tracheostomy tube today, and covered the stoma w/ xeroform gauze and will be observed overnight to ensure no oxygen desaturations 2) Sepsis/Bacteremia - Blood culture w/ H. influenzae and Wound culture w/ Prevotella - Given clinical improvement, will continue current abx therapy - although Prevotella may have amoxicillin-resistance, Augmentin (w/ B-lactamase inhibitor, also) should cover this organism 3) Multiple myeloma - currently undergoing treatment with [facility]; no treatment with chemo for the past month because of complications with fluid retention and SOB so next planned tx is in February - osteolytic skeletal lesions seen on chest CTA and soft tissue neck CT - on intermittent dexamethasone at home time w/ MM Tx's, montelukast, loratadine at home; resumed given PO tolerance 4) Hypertension - stable - restart home meds given PO okay Chronic stable diagnoses: HLD - ASA and statin Hypothyroidism - levothyroxine Anxiety/depression - Wellbutrin, escitalopram, zolpidem Code status: Full code VTE ppx: SCDs; defer pharmacologic management at this time Disposition: PCU-Tele ROJELIOI: Regular Admission and Anticipated Discharge Date Admission Date: January 05, 2024 Supervising Physician Co-Signing Physician Notes ATTESTATION I also saw the patient and confirmed mccracken portions of the history and exam. I discussed the case with the resident. I agree with the impression and plan in the resident documentation, and as summarized below. No complaints today this morning. Trach capped this morning. EXAM VS as noted Alert and oriented. NAD CV regular Respirations non labored DATA Labs Hgb stable at 12.2 No white count Imaging No new imaging Micro H. flu betalactamase 2/2 blood Prevotella melaninogenica in tissue IMPRESSION & PLAN Suprapiglottis S/P tracheostomy H. flu (+) blood Multiple myeloma Continue Augmentin Tapering dose of prednisone upon discharge Pull peres today Anticipate discharge tomorrow if all goes as planned Additional per resident documentation Subjective Patient is a 53 yo M w/ a PMHx of past medical hx of hypothyroidism, anxiety/de pression, HLD, and multiple myeloma presented to the hospital on 01/04 for several days fever, sore throat and then difficulty swallowing found to have epiglottitis, requiring tracheostomy and ICU care. Saw him today and he's doing well, AAO x 4, progressively improving, with trach collar equipped w/ [place] valve and patient doing well with no subjective dyspnea or other issues. Feeling overall well. No tenderness around his tracheostomy save for when they are moving it. Tolerating meals, PO meds, no fevers, chills, chest pain, SOB, AP or other Sx's. Patient agreeable to urinary catheter removal today. Review of Systems Review of Systems: Per HPI. Constitutional: no fever, no chills and no fatigue Ear, Nose, Mouth, Throat: no change in voice and no dysphagia Respiratory: no cough Cardiovascular: no chest pain, no dyspnea and no lightheadedness Gastrointestinal: no abdominal pain, no nausea, no vomiting and no change in bowel habits Genitourinary: no dysuria Physical Exam Constitutional: WD/WN, vitals as above Respiratory: normal respiratory effort, lungs clear to auscultation Auscultation: lungs clear to auscultation bilaterally; no crackles and no wheeze s Cardiovascular: RRR, no murmur, no edema Gastrointestinal (Abdomen): normal bowel sounds, soft, nontender, no hepatosplenomegaly Psychiatric: A+Ox3, euthymic affect Results & Data Results & Data Vital Signs (Past 12 Hours) Vital Signs Temp Pulse Pulse Resp BP Pulse Ox O2 Del Method 01/10/24 03:30 36.3 C L 53 L 16 155/99 H 100 Trach Collar 01/10/24 00:00 51 L 01/09/24 22:48 36.9 C 56 L 16 146/84 H 100 Trach Collar 01/09/24 19:45 Trach Collar 01/09/24 19:37 37 C 60 18 135/80 99 Trach Collar O2 Flow Rate FiO2 01/10/24 03:30 10 01/10/24 00:00 01/09/24 22:48 10 01/09/24 19:45 28 01/09/24 19:37 10 Resident Activity Tracking Resident Involvement: Resident Care Provided Care Provided: Adult Hospital Medicine
[2024-01-10] MEDS: predniSONE 20 MG TAB PO SCH (08:29)
--- NOTE | 2024-01-10 13:21 | Ears,Nose,Throat Progress Note ---
Date of Service January 10, 2024 Assessment & Plan (1) Supraglottitis: Plan Recommend observation overnight. If no desaturations and does well, recommend discharge in the AM with dressing supplies and follow up with ENT within 1 week. Admission and Anticipated Discharge Date Admission Date: January 05, 2024 Subjective Patient is a 53 yo M w/ a PMHx of past medical hx of hypothyroidism, anxiety/depression, HLD, and multiple myeloma presented to the hospital on 01/04 for several days fever, sore throat and then difficulty swallowing found to have epiglottitis, requiring tracheostomy by Dr. Rivera and ICU care. Patient reports no SOB or stridor. He's worn the speaking valve since Tuesday with no issues. He has a 6-0 DCT cuffed tracheostomy tube in. He had flexible laryngoscopy on Tuesday and Dr. Del Rio reports resolution of all upper airway infeciton and edema. Review of Systems Review of Systems: No pertinent ROS positives unless otherwise mentioned in the HPI Physical Exam 2 Physical Exam: Ears: Normal pinna Nose: No external deformity Neck: trachea midline Neuro: Alert and oriented, Moves all 4 extremities, Symmetric and normal facial nerve function Derm: No lesions noted on face or neck Cardiovascular: No JVD Capped the 6-0 cuffed tube as patient reports no issues and nursing reports no desaturations with movement and using the PM valve. I was present in the hospital for the capping trials. Patient was capped from 8-11 AM with no change in O2 saturations. We discussed options of down sizing trach tube and capping or just removing. As patient had recent endoscopy with normal findings I felt very comfortable with tracheostomy tube removal. Also, patient would be able to be intubated from above normally if there were issues. I also discussed with patient he could remove the dressing if he became acute short of breath. Cut the stitches holding the tracheostomy tube in place and removed it. Some granulation tissue forming. A xeroform gauze was placed in the stoma and covered with an occlusive dressing. Patient instructed to apply external pressure when he speaks or coughs. Results & Data Vital Signs (Past 12 Hours) Vital Signs Temp Pulse Resp BP Pulse Ox O2 Del Method O2 Flow Rate 01/10/24 12:18 37.3 C 60 18 96 Room Air 01/10/24 12:14 60 15 97 Room Air 11/26/24 08:00 Room Air 01/10/24 07:30 63 16 99 Room Air 01/10/24 07:00 35.0 C L 56 L 18 155/91 H 96 Room Air 01/10/24 03:30 36.3 C L 53 L 16 155/99 H 100 Trach Collar 10 PG Care Time/CCT Total # of Minutes Spent Total Time Spent with Patient: Total time spent is greater than 50% in coordination of care (as documented) at patient's floor/unit and/or counseling patient: 60 minutes with multiple visits before and after capping trial. I spent a long amount time counseling patient on how to react to shortness of breath. Coding Level of Care Code 58139 SUB INP/OBS CARE 350MIN Diagnoses Supraglottitis with airway obstruction J04.31 Airway obstruction: with obstruction (1) Supraglottitis Airway obstruction: with obstruction Qualified Code(s): J04.31 - Supraglottitis, unspecified, with obstruction
[2024-01-10 18:03] VITALS: RESP 16
[2024-01-11 03:07] VITALS: O2SAT 95
[2024-01-11 04:57] LABS: Basophils # (auto) 0.01 K/uL (0.00-0.20); Basophils % (auto) 0.2 %; Eosinophils # (auto) 0.06 K/uL (0.00-0.50); Eosinophils % (auto) 1.3 %; Hematocrit (blood only) 34.6 % (42.0-52.0); Hemoglobin 12.1 g/dl (14.0-18.0); Immature Granulocytes # (auto) 0.06 K/uL (0.01-0.20); Immature Granulocytes % (auto) 1.3 %; Lymphocytes # (auto) 0.55 K/uL (1.20-3.40); Lymphocytes % (auto) 11.6 %; Mean Corpuscular Hemoglobin 31.3 pg (25.0-34.0); Mean Corpuscular Volume 89.4 fL (80.0-100.0); Mean Platelet Volume 9.9 fL (9.4-12.4); Monocytes # (auto) 0.69 K/uL (0.11-0.59); Monocytes % (auto) 14.6 %; Neutrophils # (auto) 3.36 K/uL (1.40-6.50); Platelet Count 143 K/uL (130-400); RDW Coefficient of Variation 12.3 % (11.5-14.5); RDW Standard Deviation 40.5 fL (36.4-46.3); Red Blood Count 3.87 M/uL (4.70-6.10); White Blood Count 4.73 K/ul (4.8-10.8)
[2024-01-11 05:13] LABS: Albumin Globulin Ratio 1.6 (0.9-2); Albumin Level 3.5 gm/dl (3.4-5.0); BUN Creatinine Ratio 29.4 (10-20); Bilirubin,Total 0.7 mg/dl (0.2-1.0); Calcium 8.1 mg/dl (8.6-10.3); Creatinine Clr Calc Pharmacy 133.9 ml/min; Globulin 2.2 gm/dl (2.5-4.0); Potassium 3.5 mmol/L (3.5-5.1); Total Protein 5.7 gm/dl (6.0-8.3)
--- NOTE | 2024-01-11 06:40 | Discharge Summary ---
Date of Service January 11, 2024 Admission HPI Per Admitting Provider Patient is a 53-year-old male with past medical history of multiple myeloma currently undergoing treatment, hyperlipidemia, anxiety/depression, hypertension, hypothyroidism. Presents today due to URI symptoms, sore throat congestion, difficulty breathing. He went to his family doctor today and they sent him to the ER. On exam the ENT was present, discussing that patient needs go for trach immediately. Patient was feeling anxious, questions answered. Patient's updated at bedside. She stated he has not been having treatment for multiple myeloma for the past month due to fluid overload, started on Lasix. No other medication changes. Admission Exam Per Admitting Provider The patient is awake, in respiratory distress, being taken for emergent trach. HEENT- EOMI, mucous membranes dry. Hearing grossly intact. Heart-normal S1 and S2. No murmurs, rubs or gallops. Lungs-decreased bilaterally, no respiratory distress, no accessory muscle use. Abdomen-normal bowel sounds and soft. No ascites noted. Non-tender. Extremities- no clubbing, cyanosis, or edema. Rheumatologic-normal range of motion. Psychiatric- anxious affect. Principal Diagnosis epiglottis and sepsis (H. influenzae) Discharge Exam Constitutional WD/WN, vitals as above Respiratory normal respiratory effort, lungs clear to auscultation Auscultation: lungs clear to auscultation bilaterally; no crackles and no wheezes Cardiovascular RRR, no murmur, no edema Gastrointestinal (Abdomen) normal bowel sounds, soft, nontender, no hepatosplenomegaly Psychiatric A+Ox3, euthymic affect Discharge Data Allergies Allergy/AdvReac Type Severity Reaction Status Date / Time No Known Allergies Allergy Unverified 01/05/24 10:58 Consultations 01/05/24 17:23 Consult Otolaryngology (Head and Neck) Routine 01/05/24 20:47 Consult Supervisor Winding Department Routine Procedures Performed Operation Date: 01/05/24 18:30 Actual Procedures p Tracheostomy with Laryngoscopy and Biopsy(Not Applicable) - Robbi Rivera MD Ordered Studies 01/05/24 15:11 CT angio chest PE protocol Stat CT neck soft tissues [CT soft tissue neck w con] Stat Hospital Course (1) Epiglottitis: (2) Hypertension: (3) Esophagitis: (4) Hypophosphatemia: (5) Narrowing of airway: Plan Pt is a 53 yo male with a past medical hx of hypothyroidism, anxiety/depression, and HLD presents to the hospital on 01/04 for several days fever, sore throat and then difficulty swallowing found to have epiglottitis, requiring tracheostomy and ICU care. 1) Epiglottitis - patient presented with pharyngitis, mild URI symptoms, leukocytosis - neck CT; severe supraglottic and glottic airway narrowing - Severe airway narrowing noted leading to tracheostomy on 01/04; downgraded from ICU over the weekend - Stopped Unasyn, started Augmentin; therapy duration of 10 days but may change depending on patient response. Blood culture w/ H. influenzae and Wound culture w/ Prevotella Given clinical improvement, will continue current abx therapy, as Prevotella sensitive to Augmentin - although Prevotella may have amoxicillin-resistance, Augmentin (w/ B-lactamase inhibitor, also) should cover this organism - Currently on Methylprednisolone 40 mg, PO, daily - ENT removed the tracheostomy tube yesterday, and covered the stoma w/ xeroform gauze, and pt observed overnight to ensure no oxygen desaturations, with morning vitals all in stable range - patient discharged on Augmentin (amox/pot clav), 875/125 mg, PO, 4 more days - patient discharged on prednisone taper: 40 mg, PO, daily, 3 days followed by 20 mg, PO, daily, 3 days 2) Sepsis/Bacteremia - Blood culture w/ H. influenzae and Wound culture w/ Prevotella - Given clinical improvement, will continue current abx therapy - although Prevotella may have amoxicillin-resistance, Augmentin (w/ B-lactamase inhibitor, also) should cover this organism - will discharge with Augmentin, BID, PO, for 4 days - pathology from wound culture indicated only "numerous sheets of neutrophils w/ associated necrosis. Some overlying squamous epithelium, which appears reactive. No fungal elements or malignancy seen." 3) Multiple myeloma - currently undergoing treatment with [facility]; no treatment with chemo for the past month because of complications with fluid retention and SOB so next planned tx is in February possibly - osteolytic skeletal lesions seen on chest CTA and soft tissue neck CT - on intermittent dexamethasone at home periodically timed w/ MM Tx's 4) Hypertension - stable - restart home meds given PO okay Chronic stable diagnoses: HLD - ASA and statin continue upon discharge Hypothyroidism - levothyroxine continue upon discharge Anxiety/depression - Wellbutrin, escitalopram, zolpidem continue upon discharge Total Time Total Time Spent Total Time Spent (In Minutes): see attending attestation Discharge Plan Discharge Items Patient Disposition: Home - Self-Care Reason For Visit: AIRWAY NARROWING, EPIGLOTTITIS Discharge Diagnosis: Epiglottitis and Sepsis Activity: Resume your previous activity Non-emergency contact: Primary Care Provider and Oncologist Call non-emergency contact if: you have any medication questions and your symptoms worsen Follow-up/Referrals: Christin Covarrubias MD [Outside Practitioners] - PCP,TOMEKA [Physician] - Diet: Regular Addtl Attending Provider Instructions: You were admitted to the hospital for respiratory distress and compromise, subsequently found to have epiglottitis and sepsis. You were treated with Unasyn, IV; Augmentin, PO; and IV and oral steroids. A discharge summary will be sent to your primary care physician to ensure continuity of care. Please bring this discharge summary with you to your next office appointment so that your provider can review it at that time. Follow-up appointments: We have requested a follow-up appointment with your primary care physician within one week of discharge. Please call their office if you do not hear from them. Keep all your follow-up appointments as already scheduled. If you cannot make an appointment, notify your provider. Medications: Your medication list has been reviewed and reconciled upon discharge to ensure accuracy and continuity of care. An updated list of all your medications is included with your hospital discharge paperwork. Please review this list closely, and make note of any changes. We sent a new medication called Augmentin to your pharmacy. Take Augmentin (875/125 mg: amoxicillin/clavulanic acid), one tablet, twice a day, for 4 days. We sent a new medication called prednisone to your pharmacy. Take prednisone, 40 mg, daily for 3 days, followed by 20 mg, daily for 3 days. Take your medications as instructed; do not skip a dose of your medicines. Make sure all of your doctors know every medicine you are taking (including [id number] medicines, vitamins, and supplements). Call your primary care provider before taking any new medicines (including nfwv-yeo-rpvgsoc medicines, vitamins, and supplements), because some of these may interact with your current medications, or may make your symptoms worse. Tell your primary care provider if you cannot afford your medications. CONTACT YOUR PRIMARY CARE PROVIDER if you experience any of the following: fevers, chills, shortness of breath, airway swelling, increasing tenderness or redness around stoma Difficulty following your treatment plan, or difficulty taking medications CALL 911 OR GO TO THE EMERGENCY DEPARTMENT if you experience any of the following: Sudden, severe abdominal pain or nausea/vomiting Severe chest pain, or chest pain that radiates (moves) to your jaw or arm Sudden, severe shortness of breath or difficulty breathing Thank you for allowing us to participate in your care Pending Studies at Discharge: No Stand-Alone Forms: My [facility] [employer] Smoking Cessation Medications and DC Order Prescriptions: New amoxicillin-pot clavulanate 875-125 mg tablet 1 tab PO BID Qty: 8 0RF prednisone 20 mg tablet 20 mg PO DAILY 6 Days Qty: 9 0RF Rx Instructions: Take 40 mg (2 tabs) for 3 days Followed by 20 mg (1 tab) for 3 days Continued rosuvastatin 10 mg Tablet 10 mg PO DAILY metoprolol succinate 50 mg Tablet Extended Release 24 Hr 25 mg PO DAILY levothyroxine 88 mcg Tablet 88 mcg PO DAILY Rx Instructions: on an empty stomach hyoscyamine sulfate [Anaspaz] 0.125 mg Tablet,Disintegrating 0.125 mg PO TID PRN (Reason: Abdominal Discomfort) montelukast 10 mg Tablet 10 mg PO DAILY Patient Comments: part of chemo treatment aspirin 81 mg Tablet 81 mg PO DAILY zolpidem 5 mg Tablet 5 mg PO HS PRN (Reason: Sleep) furosemide 20 mg Tablet 20 mg PO DAILY loratadine 10 mg Tablet 10 mg PO DAILY PRN (Reason: part of chemo treatment) Patient Comments: part of chemo treatment oxycodone 5 mg Tablet 5 mg PO Q6H PRN (Reason: Pain) cholecalciferol (vitamin D3) 10 mcg (400 unit) Capsule 10 mcg PO DAILY cyanocobalamin (vitamin B-12) 1,000 mcg/mL Syringe 1,000 mcg MONTHLY escitalopram oxalate 20 mg Tablet 20 mg PO DAILY bupropion HCl [Wellbutrin XL] 150 mg Tablet Extended Release 24 Hr 150 mg PO QAM gabapentin 300 mg Tablet 300 mg PO HS Held dexamethasone 4 mg Tablet 4 mg PO DAILY Hold Instructions: Resume on 01/18/24. Discharge Orders: Discharge Order (Routine); Ordered 01/11/24 Ordered By: Daniel Persaud Admission Data Admit Date/Time: 01/05/24 18:29 Attending Provider: Jesse Malave Admit Provider: Chapo Lozada Primary Care Provider: Valeria Zaldivar Other Providers: Christin Covarrubias; Robbi Rivera; Ava Bentley Other Interventions: Discharge Summary Assessment (RN) Last Done: 01/11/24 11:30 Supervising Physician Co-Signing Physician Notes ATTESTATION I also saw the patient and confirmed mccracken portions of the history and exam. I discussed the case with the resident. I agree with the impression and plan in the resident documentation, and as summarized below. Feeling well. Looking forward to going home. Comfortable with wound care, medications, and follow up. Discussed slightly high BPs but reasonable given situation; he recently purchased a home BP unit and has been monitoring for his PCP. EXAM VS as noted Alert and oriented. NAD CV regular Respirations non labored DATA Labs CBC and CMP as noted Imaging No new imaging Micro H. flu betalactamase 2/2 blood Prevotella melaninogenica in tissue IMPRESSION & PLAN Suprapiglottis S/P tracheostomy H. flu (+) blood Multiple myeloma Complete Augmentin at home Prednisone taper PCP and ENT follow up Additional per resident documentation
[2024-01-11 09:22] VITALS: TEMP 98.2
[2024-01-11] MEDS: HEPARIN 100 UNIT/ML 5ML FLUSH ONE (10:11)
[2024-01-11 12:53] VITALS: BP 157/86; PULSE 65
[2024-01-11] MEDS ORDERED: Nursing to Pharmacy Communication SCH (15:22)
== END 2024-01-11 12:05 | disposition home or self-care (01) | DRG 4 ==
LOC: ED 10:46 → OR 18:28 → 1E 18:29 → SUATTDRO 18:29 → OR 19:45
PROC: M.TRACH (2024-01-05 18:30)